=== PATIENT | female | born 2000 | race Caucasian/White ===

== ENCOUNTER 2019-10-30 10:26 | Inpatient (IN) | payer MEDICAID, OTHER ==
[~2019-10-30] VITALS: Ht 172.7 cm; Wt 80.0 kg
[2019-10-30] MEDS ORDERED: TOPI100T37 PO (10:38)
[2019-10-30] MEDS ORDERED: DOCU-275 PO (10:38)
[2019-10-30] MEDS ORDERED: NAPR250T4 PO (10:38)
[2019-10-30] MEDS ORDERED: TRAZ-257 PO (10:38)
[2019-10-30] MEDS ORDERED: OLAN5TAB2 PO (10:38)
[2019-10-30] MEDS ORDERED: OXCA300T57 PO (10:38)
[2019-10-30] MEDS ORDERED: POLY17PO47 PO (10:38)
[2019-10-30] MEDS ORDERED: ZOLP10TA8 PO (10:38)
[2019-10-30] MEDS ORDERED: DIPH25CA85 PO (10:38)
[2019-10-30] MEDS ORDERED: OLAN7.5T2 PO (10:38)
[2019-10-30] MEDS ORDERED: LEVO1TAB57 PO (10:38)
[2019-10-30 14:22] LABS: AMPHET/METH SCREEN,URINE NEGATIVE (NEGATIVE); APPEARANCE,URINE CLOUDY (CLEAR); BARBITURATE SCREEN, URINE NEGATIVE (NEGATIVE); BENZODIAZEPINES SCREEN,URINE NEGATIVE (NEGATIVE); BILIRUBIN,URINE NEGATIVE (NEGATIVE); CANNABINOID SCREEN,URINE NEGATIVE (NEGATIVE); COCAINE SCREEN,URINE NEGATIVE (NEGATIVE); GLUCOSE, URINE (UA) NEGATIVE (NEGATIVE); KETONES,URINE NEGATIVE (NEGATIVE); LEUKOCYTE ESTERASE ,URINE MODERATE (NEGATIVE); METHADONE SCREEN, URINE NEGATIVE (NEGATIVE); NITRATE,URINE NEGATIVE (NEGATIVE); OCCULT BLOOD,URINE NEGATIVE (NEGATIVE); OPIATE SCREEN,URINE NEGATIVE (NEGATIVE); PHENCYCLIDINE SCREEN,URINE NEGATIVE (NEGATIVE); PROTEIN,URINE NEGATIVE (NEGATIVE)
[2019-10-30 14:26] LABS: BASOPHILS % (AUTO) 0.6 % (0.0-2.0); EOSINOPHILS % (AUTO) 0 % (1.0-6.0); HEMATOCRIT 39.4 % (36-46); HEMOGLOBIN 13.4 g/dL (12.0-16.0); LYMPHOCYTES # (AUTO) 1.4 K/uL (1.0-4.8); LYMPHOCYTES % (AUTO) 21.9 % (22.0-44.0); MEAN CORPUSCULAR HEMOGLOBIN 30.7 pg (26.0-34.0); MEAN CORPUSCULAR HGB CONC 34.1 G/dL (31.0-37.0); MEAN CORPUSCULAR VOLUME 90 fL (80-100); MONOCYTES # (AUTO) 0.5 K/uL (0.1-1.0); MONOCYTES % (AUTO) 7.9 % (2.0-9.0); NEUTROPHILS # (AUTO) 4.4 K/uL (1.8-7.7); NEUTROPHILS % (AUTO) 69.6 % (40.0-70.0); PLATELET COUNT (AUTO) 178 K/uL (150-450); RED BLOOD CELL COUNT(AUTO) 4.38 MIL/uL (4.00-5.20); RED CELL DISTRIBUTION WIDTH 13.6 % (11.5-14.5)
[2019-10-30 14:28] LABS: BACTERIA,URINE None Seen /HPF (None Seen); RBC,URINE 0-2 /HPF (0-2)
[2019-10-30 14:29] LABS: SQUAMOUS EPITHELIAL CELL,UR Moderate /LPF (None Seen)
[2019-10-30] MEDS ORDERED: LORazepam 1 MG TABLET PO PRN (14:30)
[2019-10-30] MEDS ORDERED: ChlorproMAZINE HCL 100 MG TABLET PO PRN (14:30)
[2019-10-30 14:39] LABS: ANION GAP 12 mmol/L (8-16); CALCIUM, TOTAL 8.7 mg/dL (8.8-10.5); CARBON DIOXIDE 20 mmol/L (22-29); CHLORIDE 106 mmol/L (98-107); CREATININE 0.61 mg/dL (0.60-1.30); GLOMERULAR FILTR. RATE CALC > 60 mL/min (>60); GLUCOSE,RANDOM 87 mg/dL (70-110); POTASSIUM 3.6 mmol/L (3.5-5.1); SODIUM SERUM 138 mmol/L (136-145); UREA NITROGEN, BLOOD 10 mg/dL (7-18)
[2019-10-30 14:50] LABS: ALANINE AMINOTRANSFERASE 30 U/L (12-78); ALKALINE PHOSPHATASE 69 U/L (46-116); ASPARTATE AMINOTRANSFERASE 14 U/L (15-37); BILIRUBIN,TOTAL 0.3 mg/dL (0.1-1.0); HCG,QUANTITATIVE < 1 mIU/mL (0-6); TOTAL PROTEIN, SERUM 7.6 g/dL (6.4-8.2)
[2019-10-30] MEDS: OLANZapine 7.5 MG TABLET PO SCH (17:00)
[2019-10-30] MEDS: TOPIRAMATE 100 MG TABLET PO SCH (17:00)
[2019-10-30] MEDS: OXcarbazepine 300 MG TABLET PO SCH (17:00)
[2019-10-30] MEDS ORDERED: LOPERAMIDE HCL 2 MG CAPSULE PO PRN (18:15)
[2019-10-30] MEDS ORDERED: TUBERCULIN, PURIFIED PROTEIN DERIVATIVE 5 TU/0.1 ML SYRINGE ID ONE (18:15)
[2019-10-30] MEDS ORDERED: PROMETHAZINE HCL 25 MG TABLET PO PRN (18:15)
[2019-10-30] MEDS ORDERED: MAG HYDROX/AL HYDROX/SIMETH ES 30 ML SUSPENSION UDCUP PO PRN (18:15)
[2019-10-30] MEDS ORDERED: HydrOXYzine PAMOATE 50 MG CAPSULE PO PRN (18:15)
[2019-10-30] MEDS ORDERED: GuaiFENesin/D-METHORPHAN [SUGAR-FREE] 200-20MG/10 ML SYRUP UDCUP PO PRN (18:15)
[2019-10-30 18:30] VITALS: BP 120/79
[2019-10-30] MEDS ORDERED: HYDROCORTISONE 1% 30 GM OINTMENT TP PRN (20:15)
[2019-10-30] MEDS: DIVALPROEX SODIUM 500 MG ER TABLET PO SCH (20:35)
[2019-10-30] MEDS: TraZODone HCL 100 MG TABLET PO SCH (20:35)
[2019-10-31 02:12] VITALS: BP 117/73
[2019-10-31 08:04] VITALS: BP 118/74
[2019-10-31] MEDS: FOLIC ACID 1 MG TABLET PO SCH (08:34)
[2019-10-31] MEDS: OXcarbazepine 300 MG TABLET PO SCH ×2 (08:34→16:15)
[2019-10-31] MEDS: THIAMINE 100 MG TABLET PO SCH ×2 (08:34→16:15)
[2019-10-31] MEDS: MULTIVITAMINS WITH MINERALS, THERAPEUTIC TABLET PO SCH (08:34)
[2019-10-31] MEDS: TOPIRAMATE 100 MG TABLET PO SCH ×2 (08:34→16:15)
[2019-10-31] MEDS: OLANZapine 7.5 MG TABLET PO SCH ×2 (08:34→16:15)
[2019-10-31 16:04] VITALS: BP 116/69
[2019-10-31] MEDS: TraZODone HCL 100 MG TABLET PO SCH (20:35)
[2019-10-31] MEDS: DIVALPROEX SODIUM 500 MG ER TABLET PO SCH (20:35)
[2019-11-01 07:16] VITALS: BP 128/73
[2019-11-01] MEDS: OXcarbazepine 300 MG TABLET PO SCH ×2 (08:09→16:04)
[2019-11-01] MEDS: FOLIC ACID 1 MG TABLET PO SCH (08:09)
[2019-11-01] MEDS: TOPIRAMATE 100 MG TABLET PO SCH ×2 (08:09→16:04)
[2019-11-01] MEDS: MULTIVITAMINS WITH MINERALS, THERAPEUTIC TABLET PO SCH (08:09)
[2019-11-01] MEDS: OLANZapine 7.5 MG TABLET PO SCH ×2 (08:09→16:04)
[2019-11-01] MEDS: THIAMINE 100 MG TABLET PO SCH ×2 (08:09→16:04)
[2019-11-01 08:27] VITALS: BP 108/62
[2019-11-01 08:51] LABS: CHOL/HDL RATIO 4.4 (3.9-5.7); FREE T4 (FREE THYROXINE) 0.99 ng/dL (0.76-1.46); THYROID STIMULATING HORMONE 1.95 uIU/mL (0.36-3.74)
[2019-11-01 08:57] LABS: HEMOGLOBIN A1C 4.7 % (3.8-5.6)
[2019-11-01 16:50] VITALS: BP 113/64
[2019-11-01] MEDS: DIVALPROEX SODIUM 500 MG ER TABLET PO SCH (20:08)
[2019-11-01] MEDS: TraZODone HCL 100 MG TABLET PO SCH (20:08)
[2019-11-01] MEDS: ACETAMINOPHEN 325 MG TABLET PO PRN (20:56)
[2019-11-02 06:45] VITALS: BP 118/78
[2019-11-02 06:46] VITALS: BP 110/71
[2019-11-02 08:19] VITALS: BP 100/69
[2019-11-02] MEDS: THIAMINE 100 MG TABLET PO SCH ×2 (09:04→16:24)
[2019-11-02] MEDS: OLANZapine 7.5 MG TABLET PO SCH ×2 (09:04→16:24)
[2019-11-02] MEDS: OXcarbazepine 300 MG TABLET PO SCH ×2 (09:04→16:24)
[2019-11-02] MEDS: MULTIVITAMINS WITH MINERALS, THERAPEUTIC TABLET PO SCH (09:04)
[2019-11-02] MEDS: TOPIRAMATE 100 MG TABLET PO SCH ×2 (09:04→16:24)
[2019-11-02] MEDS: FOLIC ACID 1 MG TABLET PO SCH (09:04)
[2019-11-02 16:06] VITALS: BP 117/73
[2019-11-02] MEDS: DIVALPROEX SODIUM 500 MG ER TABLET PO SCH (20:02)
[2019-11-02] MEDS: TraZODone HCL 100 MG TABLET PO SCH (20:02)
[2019-11-03 02:54] VITALS: BP 109/68
[2019-11-03 08:21] VITALS: BP 116/83
[2019-11-03] MEDS: TOPIRAMATE 100 MG TABLET PO SCH ×2 (09:03→16:13)
[2019-11-03] MEDS: OXcarbazepine 300 MG TABLET PO SCH ×2 (09:03→16:12)
[2019-11-03] MEDS: THIAMINE 100 MG TABLET PO SCH ×2 (09:03→16:12)
[2019-11-03] MEDS: MULTIVITAMINS WITH MINERALS, THERAPEUTIC TABLET PO SCH (09:03)
[2019-11-03] MEDS: OLANZapine 7.5 MG TABLET PO SCH ×2 (09:04→16:13)
[2019-11-03] MEDS: FOLIC ACID 1 MG TABLET PO SCH (09:04)
[2019-11-03 16:06] VITALS: BP 118/69
[2019-11-03] MEDS: DIVALPROEX SODIUM 500 MG ER TABLET PO SCH (20:07)
[2019-11-03] MEDS: TraZODone HCL 100 MG TABLET PO SCH (20:07)
[2019-11-04 04:31] VITALS: BP 124/78
[2019-11-04 08:48] VITALS: BP 117/73
[2019-11-04] MEDS: TOPIRAMATE 100 MG TABLET PO SCH ×2 (09:09→16:45)
[2019-11-04] MEDS: THIAMINE 100 MG TABLET PO SCH ×2 (09:10→16:45)
[2019-11-04] MEDS: OLANZapine 7.5 MG TABLET PO SCH ×2 (09:10→16:46)
[2019-11-04] MEDS: FOLIC ACID 1 MG TABLET PO SCH (09:10)
[2019-11-04] MEDS: MULTIVITAMINS WITH MINERALS, THERAPEUTIC TABLET PO SCH (09:10)
[2019-11-04 16:38] VITALS: BP 115/67
[2019-11-04] MEDS: ACETAMINOPHEN 325 MG TABLET PO PRN (18:21)
[2019-11-04] MEDS: TraZODone HCL 100 MG TABLET PO SCH (19:48)
[2019-11-04] MEDS: DIVALPROEX SODIUM 500 MG ER TABLET PO SCH (19:48)
[2019-11-05 00:16] VITALS: BP 103/60
[2019-11-05] MEDS: FOLIC ACID 1 MG TABLET PO SCH (07:44)
[2019-11-05] MEDS: OLANZapine 7.5 MG TABLET PO SCH ×2 (07:45→17:04)
[2019-11-05] MEDS: TOPIRAMATE 100 MG TABLET PO SCH ×2 (07:45→17:04)
[2019-11-05] MEDS: THIAMINE 100 MG TABLET PO SCH ×2 (07:45→17:04)
[2019-11-05] MEDS: MULTIVITAMINS WITH MINERALS, THERAPEUTIC TABLET PO SCH (07:45)
[2019-11-05 08:27] VITALS: BP 111/77
[2019-11-05 16:09] VITALS: BP 119/72
[2019-11-05] MEDS: DIVALPROEX SODIUM 500 MG ER TABLET PO SCH (20:05)
[2019-11-05] MEDS: TraZODone HCL 100 MG TABLET PO SCH (20:06)
[2019-11-06 04:18] VITALS: BP 115/78
[2019-11-06 08:26] LABS: BASOPHILS % (AUTO) 0.5 % (0.0-2.0); EOSINOPHILS % (AUTO) 0.1 % (1.0-6.0); HEMATOCRIT 39.3 % (36-46); HEMOGLOBIN 13.4 g/dL (12.0-16.0); LYMPHOCYTES # (AUTO) 1.8 K/uL (1.0-4.8); LYMPHOCYTES % (AUTO) 36.6 % (22.0-44.0); MEAN CORPUSCULAR HEMOGLOBIN 31.5 pg (26.0-34.0); MEAN CORPUSCULAR HGB CONC 34.2 G/dL (31.0-37.0); MEAN CORPUSCULAR VOLUME 92 fL (80-100); MONOCYTES # (AUTO) 0.3 K/uL (0.1-1.0); MONOCYTES % (AUTO) 6.9 % (2.0-9.0); NEUTROPHILS # (AUTO) 2.8 K/uL (1.8-7.7); NEUTROPHILS % (AUTO) 55.9 % (40.0-70.0); PLATELET COUNT (AUTO) 165 K/uL (150-450); RED BLOOD CELL COUNT(AUTO) 4.26 MIL/uL (4.00-5.20)
[2019-11-06] MEDS: FOLIC ACID 1 MG TABLET PO SCH (08:31)
[2019-11-06] MEDS: OLANZapine 7.5 MG TABLET PO SCH ×2 (08:31→16:59)
[2019-11-06] MEDS: THIAMINE 100 MG TABLET PO SCH ×2 (08:31→16:59)
[2019-11-06] MEDS: TOPIRAMATE 100 MG TABLET PO SCH ×2 (08:31→16:59)
[2019-11-06] MEDS: MULTIVITAMINS WITH MINERALS, THERAPEUTIC TABLET PO SCH (08:31)
[2019-11-06 08:52] LABS: ALANINE AMINOTRANSFERASE 24 U/L (12-78); ALBUMIN 3.5 g/dL (3.4-5.0); ALKALINE PHOSPHATASE 70 U/L (46-116); ASPARTATE AMINOTRANSFERASE 13 U/L (15-37); BILIRUBIN,TOTAL 0.2 mg/dL (0.1-1.0); TOTAL PROTEIN, SERUM 6.9 g/dL (6.4-8.2); VALPROIC ACID 58 mcg/mL (50-100)
[2019-11-06 08:54] LABS: BILIRUBIN,DIRECT < 0.05 mg/dL (0.00-0.20)
[2019-11-06 09:02] VITALS: BP 110/66
[2019-11-06] MEDS ORDERED: TRAZ-257 PO (14:47)
[2019-11-06] MEDS ORDERED: OLAN7.5T9 PO (14:47)
[2019-11-06] MEDS ORDERED: TOPI100T37 PO (14:47)
[2019-11-06] MEDS ORDERED: DIVA-80 PO (14:47)
[2019-11-06 16:15] VITALS: BP 102/63
[2019-11-06] MEDS: TraZODone HCL 100 MG TABLET PO SCH (20:11)
[2019-11-06] MEDS: DIVALPROEX SODIUM 500 MG ER TABLET PO SCH (20:11)
[2019-11-07 00:23] VITALS: BP 104/64
[2019-11-07] MEDS: FOLIC ACID 1 MG TABLET PO SCH (08:25)
[2019-11-07] MEDS: OLANZapine 7.5 MG TABLET PO SCH ×2 (08:25→16:09)
[2019-11-07] MEDS: MULTIVITAMINS WITH MINERALS, THERAPEUTIC TABLET PO SCH (08:25)
[2019-11-07] MEDS: THIAMINE 100 MG TABLET PO SCH ×2 (08:25→16:09)
[2019-11-07] MEDS: TOPIRAMATE 100 MG TABLET PO SCH ×2 (08:25→16:09)
[2019-11-07 08:26] VITALS: BP 101/60
[2019-11-07 16:24] VITALS: BP 108/72
[2019-11-07] MEDS: DIVALPROEX SODIUM 500 MG ER TABLET PO SCH (20:27)
[2019-11-07] MEDS: TraZODone HCL 100 MG TABLET PO SCH (20:27)
[2019-11-08 03:00] VITALS: BP 106/66
[2019-11-08] MEDS: FOLIC ACID 1 MG TABLET PO SCH (08:24)
[2019-11-08] MEDS: OLANZapine 7.5 MG TABLET PO SCH ×2 (08:24→16:40)
[2019-11-08] MEDS: THIAMINE 100 MG TABLET PO SCH ×2 (08:24→16:40)
[2019-11-08] MEDS: MULTIVITAMINS WITH MINERALS, THERAPEUTIC TABLET PO SCH (08:24)
[2019-11-08] MEDS: TOPIRAMATE 100 MG TABLET PO SCH ×2 (08:25→16:40)
[2019-11-08 08:26] VITALS: BP 102/66
[2019-11-08 16:27] VITALS: BP 106/71
[2019-11-08] MEDS: DIVALPROEX SODIUM 500 MG ER TABLET PO SCH (20:25)
[2019-11-08] MEDS: TraZODone HCL 100 MG TABLET PO SCH (20:25)
[2019-11-09 05:54] VITALS: BP 100/61
[2019-11-09] MEDS: FOLIC ACID 1 MG TABLET PO SCH (08:26)
[2019-11-09] MEDS: MULTIVITAMINS WITH MINERALS, THERAPEUTIC TABLET PO SCH (08:26)
[2019-11-09] MEDS: TOPIRAMATE 100 MG TABLET PO SCH ×2 (08:26→16:23)
[2019-11-09] MEDS: OLANZapine 7.5 MG TABLET PO SCH ×2 (08:26→16:23)
[2019-11-09] MEDS: THIAMINE 100 MG TABLET PO SCH ×2 (08:26→16:23)
[2019-11-09 09:47] VITALS: BP 105/72
[2019-11-09 16:19] VITALS: BP 112/65
[2019-11-09] MEDS: DIVALPROEX SODIUM 500 MG ER TABLET PO SCH (20:21)
[2019-11-09] MEDS: TraZODone HCL 100 MG TABLET PO SCH (20:21)
[2019-11-09] MEDS: ZOLPIDEM TARTRATE 10 MG TABLET PO PRN (22:13)
[2019-11-10 00:05] VITALS: BP 105/60
[2019-11-10 08:10] VITALS: BP 113/71
[2019-11-10] MEDS: MULTIVITAMINS WITH MINERALS, THERAPEUTIC TABLET PO SCH (08:20)
[2019-11-10] MEDS: TOPIRAMATE 100 MG TABLET PO SCH ×2 (08:20→16:09)
[2019-11-10] MEDS: OLANZapine 7.5 MG TABLET PO SCH ×2 (08:20→16:09)
[2019-11-10 16:27] VITALS: BP 125/69
[2019-11-10] MEDS: DIVALPROEX SODIUM 500 MG ER TABLET PO SCH (20:02)
[2019-11-10] MEDS: TraZODone HCL 100 MG TABLET PO SCH (20:02)
[2019-11-11 01:55] VITALS: BP 128/70
[2019-11-11] MEDS: MULTIVITAMINS WITH MINERALS, THERAPEUTIC TABLET PO SCH (08:19)
[2019-11-11] MEDS: TOPIRAMATE 100 MG TABLET PO SCH ×2 (08:20→15:58)
[2019-11-11] MEDS: MAGNESIUM HYDROXIDE SUSPENSION 30 ML UDCUP PO PRN (08:20)
[2019-11-11] MEDS: OLANZapine 7.5 MG TABLET PO SCH ×2 (08:20→15:58)
[2019-11-11 08:31] VITALS: BP 109/68
[2019-11-11 16:12] VITALS: BP 107/65
[2019-11-11] MEDS: DIVALPROEX SODIUM 500 MG ER TABLET PO SCH (20:09)
[2019-11-11] MEDS: TraZODone HCL 100 MG TABLET PO SCH (20:09)
[2019-11-11] MEDS: ZOLPIDEM TARTRATE 10 MG TABLET PO PRN (20:46)
[2019-11-11] MEDS: ACETAMINOPHEN 325 MG TABLET PO PRN (21:17)
[2019-11-12 05:32] VITALS: BP 110/68
[2019-11-12] MEDS: OLANZapine 7.5 MG TABLET PO SCH ×2 (08:05→15:59)
[2019-11-12] MEDS: TOPIRAMATE 100 MG TABLET PO SCH ×2 (08:05→15:59)
[2019-11-12] MEDS: MULTIVITAMINS WITH MINERALS, THERAPEUTIC TABLET PO SCH (08:05)
[2019-11-12 08:18] VITALS: BP 103/71
[2019-11-12 16:08] VITALS: BP 105/60
[2019-11-12] MEDS: MAGNESIUM HYDROXIDE SUSPENSION 30 ML UDCUP PO PRN (20:02)
[2019-11-12] MEDS: DIVALPROEX SODIUM 500 MG ER TABLET PO SCH (20:04)
[2019-11-12] MEDS: TraZODone HCL 100 MG TABLET PO SCH (20:04)
[2019-11-13 01:20] VITALS: BP 105/60
[2019-11-13 08:06] VITALS: BP 118/68
[2019-11-13] MEDS: TOPIRAMATE 100 MG TABLET PO SCH (08:13)
[2019-11-13] MEDS: OLANZapine 7.5 MG TABLET PO SCH (08:13)
[2019-11-13] MEDS: MULTIVITAMINS WITH MINERALS, THERAPEUTIC TABLET PO SCH (08:13)
== END 2019-11-13 13:15 | disposition home or self-care (01) | DRG 885 ==
LOC: EMS 10:32 → B2S 14:19 → UNDOADMIN 15:37
PROVIDERS: ADMIT Psychiatry & Neurology Psychiatry; ATTEND Psychiatry & Neurology Psychiatry
DX: F25.0 Schizoaffective disorder, bipolar type (principal); F79 Unspecified intellectual disabilities; F17.200 Nicotine dependence, unspecified, uncomplicated; F41.9 Anxiety disorder, unspecified; F84.0 Autistic disorder; G40.909 Epilepsy, unspecified, not intractable, without status epilepticus; G47.00 Insomnia, unspecified; Z79.899 Other long term (current) drug therapy; Z91.19 Patient's noncompliance with other medical treatment and regimen; F90.9 Attention-deficit hyperactivity disorder, unspecified type; K59.00 Constipation, unspecified; Z20.828 Contact with and (suspected) exposure to other viral communicable diseases
CPT/HCPCS: 83036; 84439; 84443; 86592; 87086; G0480

== ENCOUNTER 2020-07-29 20:45 | Inpatient (IN) | payer MEDICAID, OTHER ==
[~2020-07-29] VITALS: Ht 172.7 cm; Wt 96.8 kg
[~2020-07-29 20:45] MED LIST: DIVA-80 PO; OLAN7.5T9 PO; TOPI100T37 PO; TRAZ-257 PO
[2020-07-29] MEDS ORDERED: LORazepam 2 MG TABLET PO PRN (23:00)
[2020-07-29] MEDS ORDERED: ZOLPIDEM TARTRATE 10 MG TABLET PO PRN (23:00)
[2020-07-29] MEDS ORDERED: HALOPERIDOL 5 MG TABLET PO PRN (23:00)
[2020-07-30 01:29] LABS: COVID AG,FIA SOURCE NASOPHARYNGEAL
[2020-07-30 01:32] LABS: BASOPHILS % (AUTO) 0.4 % (0.0-2.0); EOSINOPHILS % (AUTO) 0 % (1.0-6.0); HEMATOCRIT 38.5 % (36-46); HEMOGLOBIN 13.1 g/dL (12.0-16.0); LYMPHOCYTES # (AUTO) 2.4 K/uL (1.0-4.8); LYMPHOCYTES % (AUTO) 32.7 % (22.0-44.0); MEAN CORPUSCULAR HEMOGLOBIN 31.5 pg (26.0-34.0); MEAN CORPUSCULAR HGB CONC 34.2 G/dL (31.0-37.0); MEAN CORPUSCULAR VOLUME 92 fL (80-100); MONOCYTES # (AUTO) 0.6 K/uL (0.1-1.0); NEUTROPHILS # (AUTO) 4.3 K/uL (1.8-7.7); NEUTROPHILS % (AUTO) 58.9 % (40.0-70.0); PLATELET COUNT (AUTO) 175 K/uL (150-450); RED BLOOD CELL COUNT(AUTO) 4.17 MIL/uL (4.00-5.20); RED CELL DISTRIBUTION WIDTH 13.5 % (11.5-14.5)
[2020-07-30 01:40] LABS: ANION GAP 16 mmol/L (8-16); CALCIUM, TOTAL 8.9 mg/dL (8.8-10.5); CARBON DIOXIDE 19 mmol/L (22-29); CHLORIDE 106 mmol/L (98-107); CREATININE 0.59 mg/dL (0.60-1.30); GLOMERULAR FILTR. RATE CALC > 60 mL/min (>60); GLUCOSE,RANDOM 97 mg/dL (70-110); POTASSIUM 3.7 mmol/L (3.5-5.1); SODIUM SERUM 141 mmol/L (136-145); UREA NITROGEN, BLOOD 15 mg/dL (7-18)
[2020-07-30 01:40] LABS: AMPHET/METH SCREEN,URINE NEGATIVE (NEGATIVE); BARBITURATE SCREEN, URINE NEGATIVE (NEGATIVE); BENZODIAZEPINES SCREEN,URINE NEGATIVE (NEGATIVE); CANNABINOID SCREEN,URINE NEGATIVE (NEGATIVE); COCAINE SCREEN,URINE NEGATIVE (NEGATIVE); METHADONE SCREEN, URINE NEGATIVE (NEGATIVE); OPIATE SCREEN,URINE NEGATIVE (NEGATIVE)
[2020-07-30 01:46] LABS: PHENCYCLIDINE SCREEN,URINE NEGATIVE (NEGATIVE)
[2020-07-30 01:51] LABS: ALANINE AMINOTRANSFERASE 39 U/L (12-78); ALBUMIN 3.8 g/dL (3.4-5.0); ALKALINE PHOSPHATASE 76 U/L (46-116); ASPARTATE AMINOTRANSFERASE 19 U/L (15-37); BILIRUBIN,TOTAL 0.3 mg/dL (0.1-1.0); HCG,QUANTITATIVE < 1 mIU/mL (0-6); TOTAL PROTEIN, SERUM 7.4 g/dL (6.4-8.2); VALPROIC ACID 92 mcg/mL (50-100)
[2020-07-30 03:28] LABS: APPEARANCE,URINE CLOUDY (CLEAR); BILIRUBIN,URINE NEGATIVE (NEGATIVE); GLUCOSE, URINE (UA) NEGATIVE (NEGATIVE); KETONES,URINE TRACE mg/dL (NEGATIVE); LEUKOCYTE ESTERASE ,URINE NEGATIVE (NEGATIVE); NITRATE,URINE NEGATIVE (NEGATIVE); OCCULT BLOOD,URINE NEGATIVE (NEGATIVE); PROTEIN,URINE NEGATIVE (NEGATIVE)
[2020-07-30 03:32] LABS: CHOL/HDL RATIO 3.9 (3.9-5.7); CHOLESTEROL 187 mg/dL (131-200); HDL CHOLESTEROL 48 mg/dL (40-60); LDL CHOL (CALC.) 115 mg/dL (0-130); TRIGLYCERIDES 120 mg/dL (15-150)
[2020-07-30 05:41] VITALS: BP 122/80
[2020-07-30 08:05] VITALS: BP 115/85
[2020-07-30] MEDS ORDERED: GuaiFENesin/D-METHORPHAN [SUGAR-FREE] 200-20MG/10 ML SYRUP UDCUP PO PRN (12:00)
[2020-07-30] MEDS ORDERED: HydrOXYzine PAMOATE 50 MG CAPSULE PO PRN (12:00)
[2020-07-30] MEDS ORDERED: MAG HYDROX/AL HYDROX/SIMETH ES 30 ML SUSPENSION UDCUP PO PRN (12:00)
[2020-07-30] MEDS ORDERED: PROMETHAZINE HCL 25 MG TABLET PO PRN (12:00)
[2020-07-30] MEDS: THIAMINE 100 MG TABLET PO SCH (16:43)
[2020-07-30] MEDS: TOPIRAMATE 100 MG TABLET PO SCH (16:43)
[2020-07-30] MEDS: OXcarbazepine 300 MG TABLET PO SCH (16:59)
[2020-07-30 17:28] VITALS: BP 127/78
[2020-07-30] MEDS: OLANZapine 5 MG RAPDIS TABLET PO SCH (20:08)
[2020-07-30] MEDS: MELATONIN 5 MG TABLET PO SCH (20:08)
[2020-07-30] MEDS: TraZODone HCL 100 MG TABLET PO SCH (20:08)
[2020-07-30] MEDS: DIVALPROEX SODIUM 500 MG ER TABLET PO SCH (20:09)
[2020-07-31] VITALS (10 sets, daily range): BP systolic 119–125; BP diastolic 60–86
[2020-07-31] MEDS: MAGNESIUM HYDROXIDE SUSPENSION 30 ML UDCUP PO PRN (06:50)
[2020-07-31 08:26] LABS: FREE T4 (FREE THYROXINE) 0.87 ng/dL (0.76-1.46); THYROID STIMULATING HORMONE 2.99 uIU/mL (0.36-3.74)
[2020-07-31 08:35] LABS: HEMOGLOBIN A1C 4.4 % (3.8-5.6)
[2020-07-31] MEDS: OMEGA-3/DHA/EPA/FISH OIL 1,000 MG CAPSULE PO SCH (08:35)
[2020-07-31] MEDS: TOPIRAMATE 100 MG TABLET PO SCH ×2 (08:35→16:30)
[2020-07-31] MEDS: OXcarbazepine 300 MG TABLET PO SCH ×2 (08:35→16:30)
[2020-07-31] MEDS: MULTIVITAMINS WITH MINERALS, THERAPEUTIC TABLET PO SCH (08:35)
[2020-07-31] MEDS: FOLIC ACID 1 MG TABLET PO SCH (08:35)
[2020-07-31] MEDS: THIAMINE 100 MG TABLET PO SCH ×2 (08:35→16:30)
[2020-07-31] MEDS: ACETAMINOPHEN 325 MG TABLET PO PRN (19:43)
[2020-07-31] MEDS: OLANZapine 5 MG RAPDIS TABLET PO SCH (20:13)
[2020-07-31] MEDS: TraZODone HCL 100 MG TABLET PO SCH (20:13)
[2020-07-31] MEDS: DIVALPROEX SODIUM 500 MG ER TABLET PO SCH (20:13)
[2020-07-31] MEDS: MELATONIN 5 MG TABLET PO SCH (20:13)
[2020-08-01 00:51] VITALS: BP 120/68
[2020-08-01 02:01] VITALS: BP 120/68
[2020-08-01] MEDS: FOLIC ACID 1 MG TABLET PO SCH (08:02)
[2020-08-01] MEDS: THIAMINE 100 MG TABLET PO SCH ×2 (08:02→16:19)
[2020-08-01] MEDS: OMEGA-3/DHA/EPA/FISH OIL 1,000 MG CAPSULE PO SCH (08:02)
[2020-08-01] MEDS: TOPIRAMATE 100 MG TABLET PO SCH ×2 (08:02→16:19)
[2020-08-01] MEDS: MULTIVITAMINS WITH MINERALS, THERAPEUTIC TABLET PO SCH (08:03)
[2020-08-01] MEDS: ATOMOXETINE HCL 25 MG CAPSULE PO SCH (08:03)
[2020-08-01] MEDS: OXcarbazepine 300 MG TABLET PO SCH ×2 (08:03→16:19)
[2020-08-01 08:15] VITALS: BP 120/77
[2020-08-01 16:07] VITALS: BP 121/81
[2020-08-01] MEDS: MAGNESIUM HYDROXIDE SUSPENSION 30 ML UDCUP PO PRN (18:10)
[2020-08-01] MEDS: TraZODone HCL 100 MG TABLET PO SCH (20:02)
[2020-08-01] MEDS: MELATONIN 5 MG TABLET PO SCH (20:02)
[2020-08-01] MEDS: OLANZapine 5 MG RAPDIS TABLET PO SCH (20:03)
[2020-08-01] MEDS: DIVALPROEX SODIUM 500 MG ER TABLET PO SCH (20:03)
[2020-08-02 05:44] VITALS: BP 120/68
[2020-08-02 05:53] VITALS: BP 120/68
[2020-08-02] MEDS: MULTIVITAMINS WITH MINERALS, THERAPEUTIC TABLET PO SCH (08:09)
[2020-08-02] MEDS: OMEGA-3/DHA/EPA/FISH OIL 1,000 MG CAPSULE PO SCH (08:09)
[2020-08-02] MEDS: FOLIC ACID 1 MG TABLET PO SCH (08:09)
[2020-08-02] MEDS: TOPIRAMATE 100 MG TABLET PO SCH ×2 (08:10→16:03)
[2020-08-02] MEDS: THIAMINE 100 MG TABLET PO SCH ×2 (08:10→16:03)
[2020-08-02] MEDS: OXcarbazepine 300 MG TABLET PO SCH ×2 (08:10→16:04)
[2020-08-02] MEDS: LOPERAMIDE HCL 2 MG CAPSULE PO PRN ×2 (08:13→12:15)
[2020-08-02] MEDS: ATOMOXETINE HCL 25 MG CAPSULE PO SCH (08:15)
[2020-08-02 09:12] VITALS: BP_SYST 117; BP_DIAS 64; BP_DIAS 65
[2020-08-02] MEDS: ACETAMINOPHEN 325 MG TABLET PO PRN (16:02)
[2020-08-02 16:16] VITALS: BP 124/70
[2020-08-02] MEDS: DIVALPROEX SODIUM 500 MG ER TABLET PO SCH (19:57)
[2020-08-02] MEDS: MELATONIN 5 MG TABLET PO SCH (19:57)
[2020-08-02] MEDS: OLANZapine 5 MG RAPDIS TABLET PO SCH (19:57)
[2020-08-02] MEDS: TraZODone HCL 100 MG TABLET PO SCH (19:57)
[2020-08-03 01:26] VITALS: BP 109/65
[2020-08-03 01:31] VITALS: BP 109/65
[2020-08-03 05:18] VITALS: BP 108/54
[2020-08-03 07:18] LABS: COVID AG,FIA SOURCE NASOPHARYNGEAL
[2020-08-03 08:11] VITALS: BP 122/63
[2020-08-03] MEDS: FOLIC ACID 1 MG TABLET PO SCH (08:14)
[2020-08-03] MEDS: OMEGA-3/DHA/EPA/FISH OIL 1,000 MG CAPSULE PO SCH (08:14)
[2020-08-03] MEDS: THIAMINE 100 MG TABLET PO SCH ×2 (08:15→16:04)
[2020-08-03] MEDS: ATOMOXETINE HCL 25 MG CAPSULE PO SCH (08:15)
[2020-08-03] MEDS: MULTIVITAMINS WITH MINERALS, THERAPEUTIC TABLET PO SCH (08:15)
[2020-08-03] MEDS: TOPIRAMATE 100 MG TABLET PO SCH ×2 (08:15→16:04)
[2020-08-03] MEDS: OXcarbazepine 300 MG TABLET PO SCH ×2 (08:15→16:04)
[2020-08-03 16:04] VITALS: BP 129/85
[2020-08-03 17:19] VITALS: BP 118/67
[2020-08-03] MEDS: LOPERAMIDE HCL 2 MG CAPSULE PO PRN (17:54)
[2020-08-03] MEDS: ACETAMINOPHEN 325 MG TABLET PO PRN (18:44)
[2020-08-03] MEDS: MELATONIN 5 MG TABLET PO SCH (20:00)
[2020-08-03] MEDS: TraZODone HCL 100 MG TABLET PO SCH (20:00)
[2020-08-03] MEDS: DIVALPROEX SODIUM 500 MG ER TABLET PO SCH (20:00)
[2020-08-03] MEDS: OLANZapine 10 MG RAPDIS TABLET PO SCH (20:02)
[2020-08-04 05:34] VITALS: BP 124/65
[2020-08-04 08:04] VITALS: BP 125/55
[2020-08-04] MEDS: THIAMINE 100 MG TABLET PO SCH ×2 (08:04→15:48)
[2020-08-04] MEDS: OXcarbazepine 300 MG TABLET PO SCH ×2 (08:04→15:48)
[2020-08-04] MEDS: MULTIVITAMINS WITH MINERALS, THERAPEUTIC TABLET PO SCH (08:04)
[2020-08-04] MEDS: FOLIC ACID 1 MG TABLET PO SCH (08:04)
[2020-08-04] MEDS: TOPIRAMATE 100 MG TABLET PO SCH ×2 (08:05→15:49)
[2020-08-04] MEDS: OMEGA-3/DHA/EPA/FISH OIL 1,000 MG CAPSULE PO SCH (08:05)
[2020-08-04] MEDS ORDERED: ATOMOXETINE HCL 40 MG CAPSULE PO SCH (09:00)
[2020-08-04] MEDS: ACETAMINOPHEN 325 MG TABLET PO PRN ×2 (09:10→15:49)
[2020-08-04 16:03] VITALS: BP 135/87
[2020-08-04] MEDS: DIVALPROEX SODIUM 500 MG ER TABLET PO SCH (19:59)
[2020-08-04] MEDS: TraZODone HCL 150 MG TABLET PO SCH (19:59)
[2020-08-04] MEDS: MELATONIN 5 MG TABLET PO SCH (19:59)
[2020-08-04] MEDS: OLANZapine 10 MG RAPDIS TABLET PO SCH (19:59)
[2020-08-05 04:10] VITALS: BP 118/68
[2020-08-05 08:09] VITALS: BP 108/73
[2020-08-05] MEDS: OMEGA-3/DHA/EPA/FISH OIL 1,000 MG CAPSULE PO SCH (08:41)
[2020-08-05] MEDS: MULTIVITAMINS WITH MINERALS, THERAPEUTIC TABLET PO SCH (08:41)
[2020-08-05] MEDS: TOPIRAMATE 100 MG TABLET PO SCH ×2 (08:41→16:01)
[2020-08-05] MEDS: THIAMINE 100 MG TABLET PO SCH ×2 (08:41→16:00)
[2020-08-05] MEDS: OXcarbazepine 300 MG TABLET PO SCH ×3 (08:41→16:00)
[2020-08-05] MEDS: FOLIC ACID 1 MG TABLET PO SCH (08:41)
[2020-08-05] MEDS ORDERED: ATOMOXETINE HCL 60 MG CAPSULE PO SCH (09:00)
[2020-08-05] MEDS ORDERED: TOPI100T37 PO (15:46)
[2020-08-05] MEDS ORDERED: TRAZ150 PO (15:46)
[2020-08-05] MEDS ORDERED: OMEG-135 PO (15:46)
[2020-08-05] MEDS ORDERED: OLAN10TA22 PO (15:46)
[2020-08-05] MEDS ORDERED: OXCA300T57 PO (15:46)
[2020-08-05] MEDS ORDERED: ATOM60CA7 PO (15:46)
[2020-08-05] MEDS ORDERED: MELA5TAB3 PO (15:46)
[2020-08-05] MEDS ORDERED: DIVA-80 PO (15:46)
[2020-08-05 16:03] VITALS: BP 124/77
[2020-08-05] MEDS: ACETAMINOPHEN 325 MG TABLET PO PRN (17:18)
[2020-08-05] MEDS: MELATONIN 5 MG TABLET PO SCH (20:05)
[2020-08-05] MEDS: DIVALPROEX SODIUM 500 MG ER TABLET PO SCH (20:05)
[2020-08-05] MEDS: TraZODone HCL 150 MG TABLET PO SCH (20:05)
[2020-08-05] MEDS: OLANZapine 10 MG RAPDIS TABLET PO SCH (20:05)
[2020-08-06 00:01] VITALS: BP 113/60
[2020-08-06 08:22] VITALS: BP 122/74
[2020-08-06] MEDS: MULTIVITAMINS WITH MINERALS, THERAPEUTIC TABLET PO SCH (08:47)
[2020-08-06] MEDS: FOLIC ACID 1 MG TABLET PO SCH (08:47)
[2020-08-06] MEDS: THIAMINE 100 MG TABLET PO SCH (08:47)
[2020-08-06] MEDS: OMEGA-3/DHA/EPA/FISH OIL 1,000 MG CAPSULE PO SCH (08:47)
[2020-08-06] MEDS: TOPIRAMATE 100 MG TABLET PO SCH (08:48)
[2020-08-06] MEDS: OXcarbazepine 300 MG TABLET PO SCH ×2 (08:49→12:44)
[2020-08-06] MEDS ORDERED: ATOMOXETINE HCL 40 MG CAPSULE PO SCH (09:00)
== END 2020-08-06 13:59 | disposition home or self-care (01) | DRG 750 ==
LOC: EMS 20:45 → B2S 23:00
PROVIDERS: ADMIT Psychiatry & Neurology Psychiatry; ATTEND Psychiatry & Neurology Psychiatry
DX: F25.1 Schizoaffective disorder, depressive type (principal); R45.851 Suicidal ideations; F70 Mild intellectual disabilities; G40.909 Epilepsy, unspecified, not intractable, without status epilepticus; Z20.822 Contact with and (suspected) exposure to COVID-19; F90.9 Attention-deficit hyperactivity disorder, unspecified type; F41.9 Anxiety disorder, unspecified; Z55.9 Problems related to education and literacy, unspecified; Z59.9 Problem related to housing and economic circumstances, unspecified; Z65.3 Problems related to other legal circumstances
CPT/HCPCS: 73503; 73552; 80053; 80061; 80164; 81003; 83036; 84439; 84443; 84702; 85025; 87426; 99285; A9575; G0480

== ENCOUNTER 2020-08-22 18:26 | Inpatient (IN) | payer MEDICAID, OTHER ==
[~2020-08-22] VITALS: Ht 175.3 cm; Wt 94.3 kg
[~2020-08-22 18:26] MED LIST changes: +ATOM60CA7 PO; +MELA5TAB3 PO; +OLAN10TA22 PO; -OLAN7.5T9 PO; +OMEG-135 PO; +OXCA300T57 PO; -TRAZ-257 PO; +TRAZ150 PO
[2020-08-22 19:29] LABS: BASOPHILS % (AUTO) 0.7 % (0.0-2.0); EOSINOPHILS % (AUTO) 0 % (1.0-6.0); HEMOGLOBIN 12.2 g/dL (12.0-16.0); LYMPHOCYTES # (AUTO) 1.5 K/uL (1.0-4.8); LYMPHOCYTES % (AUTO) 27.4 % (22.0-44.0); MEAN CORPUSCULAR HEMOGLOBIN 31.4 pg (26.0-34.0); MEAN CORPUSCULAR HGB CONC 33.9 G/dL (31.0-37.0); MEAN CORPUSCULAR VOLUME 93 fL (80-100); MONOCYTES # (AUTO) 0.6 K/uL (0.1-1.0); MONOCYTES % (AUTO) 10.9 % (2.0-9.0); NEUTROPHILS # (AUTO) 3.3 K/uL (1.8-7.7); PLATELET COUNT (AUTO) 161 K/uL (150-450); RED BLOOD CELL COUNT(AUTO) 3.89 MIL/uL (4.00-5.20); RED CELL DISTRIBUTION WIDTH 13.8 % (11.5-14.5)
[2020-08-22] MEDS ORDERED: ZOLPIDEM TARTRATE 10 MG TABLET PO PRN (19:45)
[2020-08-22 19:51] LABS: CALCIUM, TOTAL 8.2 mg/dL (8.8-10.5); CARBON DIOXIDE 19 mmol/L (22-29); CHLORIDE 105 mmol/L (98-107); CREATININE 0.68 mg/dL (0.60-1.30); GLOMERULAR FILTR. RATE CALC > 60 mL/min (>60); GLUCOSE,RANDOM 112 mg/dL (70-110); UREA NITROGEN, BLOOD 11 mg/dL (7-18)
[2020-08-22 20:02] LABS: ALANINE AMINOTRANSFERASE 26 U/L (12-78); ALBUMIN 3.6 g/dL (3.4-5.0); ALKALINE PHOSPHATASE 76 U/L (46-116); ANION GAP 15 mmol/L (8-16); ASPARTATE AMINOTRANSFERASE 15 U/L (15-37); BILIRUBIN,TOTAL 0.3 mg/dL (0.1-1.0); HCG,QUANTITATIVE < 1 mIU/mL (0-6); POTASSIUM 3.3 mmol/L (3.5-5.1); SODIUM SERUM 139 mmol/L (136-145); TOTAL PROTEIN, SERUM 6.8 g/dL (6.4-8.2)
[2020-08-22 20:39] LABS: AMPHET/METH SCREEN,URINE NEGATIVE (NEGATIVE); BARBITURATE SCREEN, URINE NEGATIVE (NEGATIVE); BENZODIAZEPINES SCREEN,URINE NEGATIVE (NEGATIVE); CANNABINOID SCREEN,URINE NEGATIVE (NEGATIVE); COCAINE SCREEN,URINE NEGATIVE (NEGATIVE); METHADONE SCREEN, URINE NEGATIVE (NEGATIVE); OPIATE SCREEN,URINE NEGATIVE (NEGATIVE)
[2020-08-22 20:41] LABS: PHENCYCLIDINE SCREEN,URINE NEGATIVE (NEGATIVE)
[2020-08-22 20:44] LABS: COVID AG,FIA SOURCE NASOPHARYNGEAL
[2020-08-22] MEDS ORDERED: POTASSIUM CHLORIDE 20 MEQ ER TABLET PO ONE (20:45)
[2020-08-22] MEDS ORDERED: LORazepam 1 MG TABLET PO ONE (23:30)
[2020-08-23 08:00] VITALS: BP 128/84
[2020-08-23] MEDS: LORazepam 2 MG TABLET PO PRN ×2 (11:21→19:59)
[2020-08-23] MEDS: OLANZapine 5 MG RAPDIS TABLET PO PRN (17:03)
[2020-08-23 17:14] VITALS: BP 133/87
[2020-08-24 08:00] VITALS: BP 132/73
[2020-08-24] MEDS: OLANZapine 5 MG RAPDIS TABLET PO PRN (08:22)
[2020-08-24] MEDS: LORazepam 2 MG TABLET PO PRN (08:22)
[2020-08-24] MEDS: TOPIRAMATE 100 MG TABLET PO SCH (16:02)
[2020-08-24 16:30] VITALS: BP 135/71
[2020-08-24] MEDS: TraZODone HCL 150 MG TABLET PO SCH (20:18)
[2020-08-24] MEDS: DIVALPROEX SODIUM 500 MG ER TABLET PO SCH (20:18)
[2020-08-24] MEDS: MELATONIN 5 MG TABLET PO SCH (20:19)
[2020-08-24] MEDS: OLANZapine 10 MG TABLET PO SCH (20:19)
[2020-08-24 20:30] VITALS: BP 133/83
[2020-08-24] MEDS ORDERED: ACETAMINOPHEN 325 MG TABLET PO PRN (20:45)
[2020-08-24] MEDS ORDERED: ATOM40CA9 PO (20:45)
[2020-08-24] MEDS ORDERED: IBUPROFEN 600 MG TABLET PO PRN (20:45)
[2020-08-25] MEDS: TOPIRAMATE 100 MG TABLET PO SCH ×2 (08:13→15:58)
[2020-08-25 08:14] VITALS: BP 116/69
[2020-08-25] MEDS ORDERED: FLUCONAZOLE 200 MG TABLET PO ONE (11:00)
[2020-08-25] MEDS ORDERED: POTASSIUM CHLORIDE 20 MEQ ER TABLET PO ONE ×2 (12:30→17:00)
[2020-08-25] MEDS: OLANZapine 5 MG RAPDIS TABLET PO PRN (15:58)
[2020-08-25 16:27] VITALS: BP 119/66
[2020-08-25] MEDS: LORazepam 2 MG TABLET PO PRN (17:49)
[2020-08-25] MEDS: MELATONIN 5 MG TABLET PO SCH (20:12)
[2020-08-25] MEDS: DIVALPROEX SODIUM 500 MG ER TABLET PO SCH (20:12)
[2020-08-25] MEDS: TraZODone HCL 150 MG TABLET PO SCH (20:12)
[2020-08-25] MEDS: OLANZapine 10 MG TABLET PO SCH (20:12)
[2020-08-26 08:00] VITALS: BP 130/83
[2020-08-26] MEDS: OLANZapine 5 MG RAPDIS TABLET PO PRN ×2 (08:23→15:33)
[2020-08-26] MEDS: TOPIRAMATE 100 MG TABLET PO SCH ×2 (08:23→16:12)
[2020-08-26 09:11] LABS: APPEARANCE,URINE CLOUDY (CLEAR); BILIRUBIN,URINE NEGATIVE (NEGATIVE); GLUCOSE, URINE (UA) NEGATIVE (NEGATIVE); KETONES,URINE NEGATIVE (NEGATIVE); LEUKOCYTE ESTERASE ,URINE NEGATIVE (NEGATIVE); NITRATE,URINE NEGATIVE (NEGATIVE); OCCULT BLOOD,URINE NEGATIVE (NEGATIVE); PH,URINE 8.5 (5.0-8.0); PROTEIN,URINE NEGATIVE (NEGATIVE)
[2020-08-26] MEDS: LORazepam 2 MG TABLET PO PRN (16:16)
[2020-08-26 16:33] VITALS: BP 110/65
[2020-08-26] MEDS: TraZODone HCL 150 MG TABLET PO SCH (20:03)
[2020-08-26] MEDS: OLANZapine 10 MG TABLET PO SCH (20:04)
[2020-08-26] MEDS: DIVALPROEX SODIUM 500 MG ER TABLET PO SCH (20:04)
[2020-08-26] MEDS: MELATONIN 5 MG TABLET PO SCH (20:04)
[2020-08-27] MEDS: TOPIRAMATE 100 MG TABLET PO SCH ×2 (09:04→17:07)
[2020-08-27] MEDS: OLANZapine 5 MG RAPDIS TABLET PO PRN ×3 (09:05→17:50)
[2020-08-27] MEDS: LORazepam 2 MG TABLET PO PRN ×2 (09:05→13:24)
[2020-08-27 09:27] VITALS: BP 101/62
[2020-08-27] MEDS ORDERED: ChlorproMAZINE HCL 50 MG/2 ML AMP ONE (13:54)
[2020-08-27] MEDS ORDERED: LORazepam 2 MG/ML VIAL ONE (13:54)
[2020-08-27] MEDS ORDERED: ChlorproMAZINE HCL 50 MG/2 ML AMP IM ONE (14:00)
[2020-08-27] MEDS ORDERED: DiphenhydrAMINE HCL 50 MG/ML VIAL IM ONE (14:00)
[2020-08-27] MEDS ORDERED: LORazepam 2 MG/ML VIAL IM ONE (14:00)
[2020-08-27] MEDS: OLANZapine 10 MG TABLET PO SCH (20:42)
[2020-08-27] MEDS: TraZODone HCL 150 MG TABLET PO SCH (20:42)
[2020-08-27] MEDS: MELATONIN 5 MG TABLET PO SCH (20:42)
[2020-08-27] MEDS: DIVALPROEX SODIUM 500 MG ER TABLET PO SCH (20:42)
[2020-08-27 21:15] VITALS: BP 129/65
[2020-08-28] MEDS ORDERED: DIVALPROEX SODIUM 500 MG ER TABLET PO SCH (09:00)
[2020-08-28] MEDS: TOPIRAMATE 100 MG TABLET PO SCH ×2 (10:56→16:03)
[2020-08-28] MEDS ORDERED: OLAN10TA74 PO (13:12)
[2020-08-28] MEDS ORDERED: MELA5TAB3 PO (13:12)
[2020-08-28] MEDS ORDERED: TOPI100T37 PO (13:12)
[2020-08-28] MEDS ORDERED: OMEG-135 PO (13:12)
[2020-08-28] MEDS ORDERED: DIVA-80 PO ×2 (13:12)
[2020-08-28] MEDS ORDERED: TRAZ150 PO (13:12)
[2020-08-28 16:04] VITALS: BP 109/69
== END 2020-08-28 17:15 | disposition home or self-care (01) | DRG 750 ==
LOC: EMS 18:28 → B3A 19:35 → 3EC 08-23 15:06
PROVIDERS: ADMIT Psychiatry & Neurology Psychiatry; ATTEND Psychiatry & Neurology Psychiatry
DX: F20.0 Paranoid schizophrenia (principal); R56.9 Unspecified convulsions; R45.851 Suicidal ideations; F41.9 Anxiety disorder, unspecified; F84.0 Autistic disorder; E66.3 Overweight; Z68.30 Body mass index [BMI] 30.0-30.9, adult; Z88.8 Allergy status to other drugs, medicaments and biological substances; Z79.899 Other long term (current) drug therapy; N76.0 Acute vaginitis; F90.9 Attention-deficit hyperactivity disorder, unspecified type; F31.9 Bipolar disorder, unspecified; F39 Unspecified mood [affective] disorder; Z20.822 Contact with and (suspected) exposure to COVID-19
CPT/HCPCS: 80053; 81003; 84702; 85025; 99285; A9575; G0480; J1200; J2060; J3230

== ENCOUNTER 2020-09-28 22:17 | Inpatient (IN) | payer MEDICAID, OTHER ==
[~2020-09-28] VITALS: Ht 175.3 cm; Wt 94.9 kg
[~2020-09-28 22:17] MED LIST changes: -ATOM60CA7 PO; -OLAN10TA22 PO; +OLAN10TA74 PO; -OXCA300T57 PO
[2020-09-28] MEDS ORDERED: NORE1TAB34 PO (22:29)
[2020-09-28 22:46] LABS: BASOPHILS % (AUTO) 0.4 % (0.0-2.0); EOSINOPHILS % (AUTO) 0 % (1.0-6.0); HEMATOCRIT 38.2 % (36-46); HEMOGLOBIN 12.8 g/dL (12.0-16.0); LYMPHOCYTES # (AUTO) 2.3 K/uL (1.0-4.8); LYMPHOCYTES % (AUTO) 34.1 % (22.0-44.0); MEAN CORPUSCULAR HEMOGLOBIN 31.1 pg (26.0-34.0); MEAN CORPUSCULAR HGB CONC 33.5 G/dL (31.0-37.0); MEAN CORPUSCULAR VOLUME 93 fL (80-100); MONOCYTES # (AUTO) 0.7 K/uL (0.1-1.0); NEUTROPHILS # (AUTO) 3.7 K/uL (1.8-7.7); NEUTROPHILS % (AUTO) 55.5 % (40.0-70.0); PLATELET COUNT (AUTO) 151 K/uL (150-450); RED BLOOD CELL COUNT(AUTO) 4.11 MIL/uL (4.00-5.20); RED CELL DISTRIBUTION WIDTH 13.6 % (11.5-14.5)
[2020-09-28 22:54] LABS: COVID AG,FIA SOURCE NASOPHARYNGEAL
[2020-09-28 23:01] LABS: ANION GAP 12 mmol/L (8-16); CALCIUM, TOTAL 8.4 mg/dL (8.8-10.5); CARBON DIOXIDE 19 mmol/L (22-29); CHLORIDE 110 mmol/L (98-107); CREATININE 0.65 mg/dL (0.60-1.30); GLOMERULAR FILTR. RATE CALC > 60 mL/min (>60); GLUCOSE,RANDOM 125 mg/dL (70-110); POTASSIUM 3.3 mmol/L (3.5-5.1); SODIUM SERUM 141 mmol/L (136-145); UREA NITROGEN, BLOOD 10 mg/dL (7-18)
[2020-09-28 23:09] LABS: AMPHET/METH SCREEN,URINE NEGATIVE (NEGATIVE); BARBITURATE SCREEN, URINE NEGATIVE (NEGATIVE); BENZODIAZEPINES SCREEN,URINE NEGATIVE (NEGATIVE); CANNABINOID SCREEN,URINE NEGATIVE (NEGATIVE); COCAINE SCREEN,URINE NEGATIVE (NEGATIVE); METHADONE SCREEN, URINE NEGATIVE (NEGATIVE); OPIATE SCREEN,URINE NEGATIVE (NEGATIVE)
[2020-09-28 23:10] LABS: PHENCYCLIDINE SCREEN,URINE NEGATIVE (NEGATIVE)
[2020-09-28 23:12] LABS: ALANINE AMINOTRANSFERASE 55 U/L (12-78); ALBUMIN 3.4 g/dL (3.4-5.0); ALKALINE PHOSPHATASE 75 U/L (46-116); ASPARTATE AMINOTRANSFERASE 26 U/L (15-37); BILIRUBIN,TOTAL 0.3 mg/dL (0.1-1.0); HCG,QUANTITATIVE < 1 mIU/mL (0-6); TOTAL PROTEIN, SERUM 7.1 g/dL (6.4-8.2); VALPROIC ACID 60 mcg/mL (50-100)
[2020-09-28] MEDS ORDERED: POTASSIUM CHLORIDE 10% 40 MEQ/30 ML LIQUID UDCUP PO ONE (23:45)
[2020-09-29] MEDS ORDERED: ZOLPIDEM TARTRATE 10 MG TABLET PO PRN (00:15)
[2020-09-29] MEDS ORDERED: OLANZapine 5 MG RAPDIS TABLET PO PRN (00:15)
[2020-09-29] MEDS: LORazepam 2 MG TABLET PO PRN ×2 (08:16→18:27)
[2020-09-29 20:17] VITALS: BP 130/76
[2020-09-29] MEDS ORDERED: ACETAMINOPHEN 325 MG TABLET PO PRN (21:00)
[2020-09-29] MEDS ORDERED: GuaiFENesin/D-METHORPHAN [SUGAR-FREE] 200-20MG/10 ML SYRUP UDCUP PO PRN (21:00)
[2020-09-29] MEDS ORDERED: MAG HYDROX/AL HYDROX/SIMETH ES 30 ML SUSPENSION UDCUP PO PRN (21:00)
[2020-09-29] MEDS ORDERED: LOPERAMIDE HCL 2 MG CAPSULE PO PRN (21:00)
[2020-09-29] MEDS ORDERED: MAGNESIUM HYDROXIDE SUSPENSION 30 ML UDCUP PO PRN (21:00)
[2020-09-29] MEDS ORDERED: HydrOXYzine PAMOATE 50 MG CAPSULE PO PRN (21:00)
[2020-09-29] MEDS ORDERED: PROMETHAZINE HCL 25 MG TABLET PO PRN (21:00)
[2020-09-29] MEDS ORDERED: OLANZapine 10 MG RAPDIS TABLET PO ONE (21:00)
[2020-09-29] MEDS ORDERED: TraZODone HCL 150 MG TABLET PO SCH (21:00)
[2020-09-29] MEDS: MELATONIN 5 MG TABLET PO SCH (22:22)
[2020-09-30 05:27] VITALS: BP 126/72
[2020-09-30 08:20] VITALS: BP 119/70
[2020-09-30] MEDS: DIVALPROEX SODIUM 500 MG ER TABLET PO SCH ×3 (08:47→16:15)
[2020-09-30] MEDS: OMEGA-3/DHA/EPA/FISH OIL 1,000 MG CAPSULE PO SCH (08:48)
[2020-09-30] MEDS: MULTIVITAMINS WITH MINERALS, THERAPEUTIC TABLET PO SCH (08:48)
[2020-09-30] MEDS: FOLIC ACID 1 MG TABLET PO SCH (08:48)
[2020-09-30] MEDS: TOPIRAMATE 100 MG TABLET PO SCH ×2 (08:52→16:15)
[2020-09-30] MEDS: THIAMINE 100 MG TABLET PO SCH ×2 (08:53→16:15)
[2020-09-30] MEDS: ZONISAMIDE 100 MG CAPSULE PO SCH ×2 (08:53→16:15)
[2020-09-30] MEDS: OLANZapine 10 MG RAPDIS TABLET PO SCH (08:53)
[2020-09-30] MEDS: LORazepam 2 MG TABLET PO PRN (12:34)
[2020-09-30 16:23] VITALS: BP 114/57
[2020-09-30] MEDS: MELATONIN 5 MG TABLET PO SCH (20:25)
[2020-09-30] MEDS: TraZODone HCL 100 MG TABLET PO SCH (20:25)
[2020-10-01 01:53] VITALS: BP 128/54
[2020-10-01] MEDS: TOPIRAMATE 100 MG TABLET PO SCH ×2 (08:41→16:19)
[2020-10-01] MEDS: ZONISAMIDE 100 MG CAPSULE PO SCH ×2 (08:41→16:19)
[2020-10-01] MEDS: FOLIC ACID 1 MG TABLET PO SCH (08:41)
[2020-10-01] MEDS: DIVALPROEX SODIUM 500 MG ER TABLET PO SCH ×3 (08:41→16:18)
[2020-10-01] MEDS: OMEGA-3/DHA/EPA/FISH OIL 1,000 MG CAPSULE PO SCH (08:41)
[2020-10-01] MEDS: OLANZapine 10 MG RAPDIS TABLET PO SCH (08:41)
[2020-10-01] MEDS: MULTIVITAMINS WITH MINERALS, THERAPEUTIC TABLET PO SCH (08:41)
[2020-10-01] MEDS: THIAMINE 100 MG TABLET PO SCH ×2 (08:42→16:19)
[2020-10-01 08:43] VITALS: BP 121/72
[2020-10-01] MEDS: LORazepam 2 MG TABLET PO PRN (08:44)
[2020-10-01] MEDS ORDERED: POTASSIUM CHLORIDE 20 MEQ ER TABLET PO ONE ×2 (12:45→17:00)
[2020-10-01] MEDS ORDERED: OLAN10TA26 PO (13:43)
[2020-10-01] MEDS ORDERED: TOPI100T37 PO (13:43)
[2020-10-01] MEDS ORDERED: DIVA-80 PO (13:43)
[2020-10-01] MEDS ORDERED: TRAZ-257 PO (13:43)
[2020-10-01] MEDS ORDERED: MELA5TAB3 PO (13:43)
[2020-10-01] MEDS ORDERED: ZONI100C31 PO (13:43)
[2020-10-01] MEDS ORDERED: OMEG-135 PO (13:43)
[2020-10-01 16:12] VITALS: BP 123/72
[2020-10-01] MEDS: MELATONIN 5 MG TABLET PO SCH (20:12)
[2020-10-01] MEDS: TraZODone HCL 100 MG TABLET PO SCH (20:12)
[2020-10-02 00:10] VITALS: BP 118/70
[2020-10-02 07:41] LABS: CHOL/HDL RATIO 4.1 (3.9-5.7); POTASSIUM 4.1 mmol/L (3.5-5.1)
[2020-10-02] MEDS: TOPIRAMATE 100 MG TABLET PO SCH (08:07)
[2020-10-02] MEDS: MULTIVITAMINS WITH MINERALS, THERAPEUTIC TABLET PO SCH (08:07)
[2020-10-02] MEDS: FOLIC ACID 1 MG TABLET PO SCH (08:07)
[2020-10-02] MEDS: THIAMINE 100 MG TABLET PO SCH (08:07)
[2020-10-02] MEDS: DIVALPROEX SODIUM 500 MG ER TABLET PO SCH ×2 (08:07→11:56)
[2020-10-02] MEDS: OMEGA-3/DHA/EPA/FISH OIL 1,000 MG CAPSULE PO SCH (08:07)
[2020-10-02] MEDS: ZONISAMIDE 100 MG CAPSULE PO SCH (08:08)
[2020-10-02] MEDS: LORazepam 2 MG TABLET PO PRN (08:08)
[2020-10-02] MEDS: OLANZapine 10 MG RAPDIS TABLET PO SCH (08:16)
[2020-10-02 08:24] VITALS: BP 130/69
== END 2020-10-02 16:10 | disposition home or self-care (01) | DRG 750 ==
LOC: EMS 22:17 → B3A 09-29 16:59
PROVIDERS: ADMIT Psychiatry & Neurology Psychiatry; ATTEND Psychiatry & Neurology Psychiatry
DX: F25.1 Schizoaffective disorder, depressive type (principal); R45.851 Suicidal ideations; E66.9 Obesity, unspecified; F41.9 Anxiety disorder, unspecified; G47.00 Insomnia, unspecified; F84.0 Autistic disorder; F31.9 Bipolar disorder, unspecified; F90.9 Attention-deficit hyperactivity disorder, unspecified type; E87.6 Hypokalemia; Z68.30 Body mass index [BMI] 30.0-30.9, adult; Z88.8 Allergy status to other drugs, medicaments and biological substances; Z20.822 Contact with and (suspected) exposure to COVID-19
CPT/HCPCS: 80053; 80061; 80164; 84132; 84702; 85025; 87081; 99285; A9575; G0480

== ENCOUNTER 2020-11-01 08:22 | Inpatient (IN) | payer MEDICAID, OTHER ==
[~2020-11-01] VITALS: Ht 165.1 cm; Wt 77.3 kg
[~2020-11-01 08:22] MED LIST changes: +OLAN10TA26 PO; -OLAN10TA74 PO; +TRAZ-257 PO; -TRAZ150 PO; +ZONI100C31 PO
[2020-11-01 09:39] LABS: COVID AG,FIA SOURCE NASOPHARYNGEAL
[2020-11-01 10:04] LABS: BASOPHILS % (AUTO) 0.6 % (0.0-2.0); EOSINOPHILS % (AUTO) 0 % (1.0-6.0); HEMATOCRIT 41.5 % (36-46); HEMOGLOBIN 13.8 g/dL (12.0-16.0); LYMPHOCYTES # (AUTO) 1.7 K/uL (1.0-4.8); LYMPHOCYTES % (AUTO) 30.5 % (22.0-44.0); MEAN CORPUSCULAR HGB CONC 33.3 G/dL (31.0-37.0); MEAN CORPUSCULAR VOLUME 93 fL (80-100); MONOCYTES # (AUTO) 0.5 K/uL (0.1-1.0); MONOCYTES % (AUTO) 8.4 % (2.0-9.0); NEUTROPHILS # (AUTO) 3.4 K/uL (1.8-7.7); NEUTROPHILS % (AUTO) 60.5 % (40.0-70.0); PLATELET COUNT (AUTO) 119 K/uL (150-450); RED BLOOD CELL COUNT(AUTO) 4.46 MIL/uL (4.00-5.20); RED CELL DISTRIBUTION WIDTH 13.9 % (11.5-14.5)
[2020-11-01 10:10] LABS: ANION GAP 13 mmol/L (8-16); CALCIUM, TOTAL 8.4 mg/dL (8.8-10.5); CARBON DIOXIDE 18 mmol/L (22-29); CHLORIDE 109 mmol/L (98-107); CREATININE 0.68 mg/dL (0.60-1.30); GLOMERULAR FILTR. RATE CALC > 60 mL/min (>60); GLUCOSE,RANDOM 90 mg/dL (70-110); POTASSIUM 3.5 mmol/L (3.5-5.1); SODIUM SERUM 140 mmol/L (136-145); UREA NITROGEN, BLOOD 10 mg/dL (7-18)
[2020-11-01 10:22] LABS: ALANINE AMINOTRANSFERASE 63 U/L (12-78); ALBUMIN 3.6 g/dL (3.4-5.0); ALKALINE PHOSPHATASE 62 U/L (46-116); ASPARTATE AMINOTRANSFERASE 30 U/L (15-37); BILIRUBIN,TOTAL 0.4 mg/dL (0.1-1.0); HCG,QUANTITATIVE < 1 mIU/mL (0-6); TOTAL PROTEIN, SERUM 7.4 g/dL (6.4-8.2); VALPROIC ACID 84 mcg/mL (50-100)
[2020-11-01 15:12] LABS: AMPHET/METH SCREEN,URINE NEGATIVE (NEGATIVE); BARBITURATE SCREEN, URINE NEGATIVE (NEGATIVE); BENZODIAZEPINES SCREEN,URINE NEGATIVE (NEGATIVE); CANNABINOID SCREEN,URINE NEGATIVE (NEGATIVE); COCAINE SCREEN,URINE NEGATIVE (NEGATIVE); METHADONE SCREEN, URINE NEGATIVE (NEGATIVE); OPIATE SCREEN,URINE NEGATIVE (NEGATIVE); PHENCYCLIDINE SCREEN,URINE NEGATIVE (NEGATIVE)
[2020-11-01] MEDS ORDERED: ZOLPIDEM TARTRATE 10 MG TABLET PO PRN (15:30)
[2020-11-01] MEDS ORDERED: OLANZapine 5 MG RAPDIS TABLET PO PRN (15:30)
[2020-11-01] MEDS: LORazepam 2 MG TABLET PO PRN (18:09)
[2020-11-01] MEDS ORDERED: MELATONIN 5 MG TABLET PO SCH (21:00)
[2020-11-01] MEDS: DIVALPROEX SODIUM 500 MG ER TABLET PO SCH (21:19)
[2020-11-01] MEDS: TraZODone HCL 100 MG TABLET PO SCH (21:19)
[2020-11-02] MEDS: LORazepam 2 MG TABLET PO PRN (08:01)
[2020-11-02] MEDS: DIVALPROEX SODIUM 500 MG ER TABLET PO SCH ×3 (08:01→20:22)
[2020-11-02] MEDS: OLANZapine 10 MG TABLET PO SCH (08:13)
[2020-11-02] MEDS ORDERED: MAG HYDROX/AL HYDROX/SIMETH ES 30 ML SUSPENSION UDCUP PO PRN ×2 (11:30→16:30)
[2020-11-02] MEDS ORDERED: PROMETHAZINE HCL 25 MG TABLET PO PRN (11:30)
[2020-11-02] MEDS ORDERED: ACETAMINOPHEN 325 MG TABLET PO PRN ×2 (11:30→16:30)
[2020-11-02] MEDS ORDERED: MAGNESIUM HYDROXIDE SUSPENSION 30 ML UDCUP PO PRN ×2 (11:30→16:30)
[2020-11-02] MEDS ORDERED: LOPERAMIDE HCL 2 MG CAPSULE PO PRN ×2 (11:30→16:30)
[2020-11-02] MEDS ORDERED: HydrOXYzine PAMOATE 50 MG CAPSULE PO PRN (11:30)
[2020-11-02] MEDS ORDERED: GuaiFENesin/D-METHORPHAN [SUGAR-FREE] 200-20MG/10 ML SYRUP UDCUP PO PRN ×2 (11:30→16:30)
[2020-11-02] MEDS ORDERED: DOCUSATE SODIUM 100 MG CAPSULE PO PRN (16:30)
[2020-11-02] MEDS ORDERED: ALBUTEROL SULFATE HFA 90 MCG/PUFF 8 GM INHALER IH PRN (16:30)
[2020-11-02] MEDS ORDERED: PETROLATUM,WHITE 28 GM JELLY TP PRN (16:30)
[2020-11-02] MEDS ORDERED: NICOTINE 14 MG/24 HOUR PATCH TD PRN (16:30)
[2020-11-02] MEDS ORDERED: CloNIDine HCL 0.1 MG TABLET PO PRN (16:30)
[2020-11-02] MEDS ORDERED: IBUPROFEN 400 MG TABLET PO PRN (16:30)
[2020-11-02] MEDS ORDERED: ONDANSETRON HCL 4 MG TABLET PO PRN (16:30)
[2020-11-02] MEDS: TraZODone HCL 100 MG TABLET PO SCH (20:22)
[2020-11-02] MEDS: THIAMINE 100 MG TABLET PO SCH (20:22)
[2020-11-02] MEDS: MELATONIN 5 MG TABLET PO SCH (20:22)
[2020-11-03 00:19] VITALS: BP 118/66
[2020-11-03 07:49] LABS: CHOL/HDL RATIO 4.2 (3.9-5.7)
[2020-11-03 07:58] LABS: HEMOGLOBIN A1C 4.6 % (3.8-5.6)
[2020-11-03] MEDS: FOLIC ACID 1 MG TABLET PO SCH (08:06)
[2020-11-03] MEDS: MULTIVITAMINS WITH MINERALS, THERAPEUTIC TABLET PO SCH (08:06)
[2020-11-03] MEDS: NALTREXONE HCL 50 MG TABLET PO SCH (08:06)
[2020-11-03] MEDS: THIAMINE 100 MG TABLET PO SCH ×2 (08:06→16:34)
[2020-11-03] MEDS: OMEGA-3/DHA/EPA/FISH OIL 1,000 MG CAPSULE PO SCH (08:06)
[2020-11-03] MEDS: OLANZapine 10 MG TABLET PO SCH (08:06)
[2020-11-03] MEDS: DIVALPROEX SODIUM 500 MG ER TABLET PO SCH ×3 (08:07→16:34)
[2020-11-03 08:43] VITALS: BP 119/87
[2020-11-03 12:24] VITALS: BP 119/87
[2020-11-03 16:21] VITALS: BP 107/65
[2020-11-03] MEDS: ZONISAMIDE 100 MG CAPSULE PO SCH (16:34)
[2020-11-03] MEDS: TOPIRAMATE 100 MG TABLET PO SCH (16:35)
[2020-11-03] MEDS: TraZODone HCL 100 MG TABLET PO SCH (20:35)
[2020-11-03] MEDS: MELATONIN 5 MG TABLET PO SCH (20:35)
[2020-11-04 00:05] VITALS: BP 108/62
[2020-11-04 08:06] VITALS: BP 127/89
[2020-11-04] MEDS: THIAMINE 100 MG TABLET PO SCH ×2 (08:06→16:29)
[2020-11-04] MEDS: OLANZapine 10 MG TABLET PO SCH (08:06)
[2020-11-04] MEDS: ZONISAMIDE 100 MG CAPSULE PO SCH ×2 (08:06→16:29)
[2020-11-04] MEDS: NALTREXONE HCL 50 MG TABLET PO SCH (08:06)
[2020-11-04] MEDS: OMEGA-3/DHA/EPA/FISH OIL 1,000 MG CAPSULE PO SCH (08:06)
[2020-11-04] MEDS: FOLIC ACID 1 MG TABLET PO SCH (08:06)
[2020-11-04] MEDS: MULTIVITAMINS WITH MINERALS, THERAPEUTIC TABLET PO SCH (08:06)
[2020-11-04] MEDS: DIVALPROEX SODIUM 500 MG ER TABLET PO SCH ×3 (08:06→16:29)
[2020-11-04] MEDS: TOPIRAMATE 100 MG TABLET PO SCH ×2 (08:06→16:29)
[2020-11-04 12:12] VITALS: BP 127/89
[2020-11-04 16:01] VITALS: BP 100/61
[2020-11-04] MEDS: TraZODone HCL 100 MG TABLET PO SCH (20:53)
[2020-11-04] MEDS: MELATONIN 5 MG TABLET PO SCH (20:53)
[2020-11-05 01:14] VITALS: BP 102/63
[2020-11-05 08:00] VITALS: BP 121/74
[2020-11-05] MEDS: TOPIRAMATE 100 MG TABLET PO SCH ×2 (08:07→16:12)
[2020-11-05] MEDS: ZONISAMIDE 100 MG CAPSULE PO SCH ×2 (08:07→16:12)
[2020-11-05] MEDS: DIVALPROEX SODIUM 500 MG ER TABLET PO SCH ×3 (08:07→16:12)
[2020-11-05] MEDS: MULTIVITAMINS WITH MINERALS, THERAPEUTIC TABLET PO SCH (08:08)
[2020-11-05] MEDS: OMEGA-3/DHA/EPA/FISH OIL 1,000 MG CAPSULE PO SCH (08:08)
[2020-11-05] MEDS: THIAMINE 100 MG TABLET PO SCH ×2 (08:08→16:12)
[2020-11-05] MEDS: FLUoxetine HCL 20 MG CAPSULE PO SCH (08:08)
[2020-11-05] MEDS: NALTREXONE HCL 50 MG TABLET PO SCH (08:08)
[2020-11-05] MEDS: FOLIC ACID 1 MG TABLET PO SCH (08:08)
[2020-11-05] MEDS: OLANZapine 10 MG TABLET PO SCH (08:13)
[2020-11-05] MEDS ORDERED: FLUO20CA36 PO (14:49)
[2020-11-05] MEDS ORDERED: OLAN10 PO (14:49)
[2020-11-05] MEDS ORDERED: OMEG-135 PO (14:49)
[2020-11-05] MEDS ORDERED: [UNRECOGNIZED DRUG - CODE] PO (14:49)
[2020-11-05] MEDS ORDERED: DIVA-80 PO (14:49)
[2020-11-05] MEDS ORDERED: TOPI100T37 PO (14:49)
[2020-11-05] MEDS ORDERED: MELA5TAB3 PO (14:49)
[2020-11-05 16:11] VITALS: BP 111/75
[2020-11-05] MEDS: MELATONIN 5 MG TABLET PO SCH (20:30)
[2020-11-05] MEDS: TraZODone HCL 100 MG TABLET PO SCH (20:31)
[2020-11-06 00:54] VITALS: BP 115/62
[2020-11-06] MEDS: DIVALPROEX SODIUM 500 MG ER TABLET PO SCH ×2 (08:09→12:01)
[2020-11-06] MEDS: NALTREXONE HCL 50 MG TABLET PO SCH (08:09)
[2020-11-06] MEDS: OMEGA-3/DHA/EPA/FISH OIL 1,000 MG CAPSULE PO SCH (08:09)
[2020-11-06] MEDS: ZONISAMIDE 100 MG CAPSULE PO SCH (08:09)
[2020-11-06] MEDS: THIAMINE 100 MG TABLET PO SCH (08:09)
[2020-11-06] MEDS: TOPIRAMATE 100 MG TABLET PO SCH (08:09)
[2020-11-06] MEDS: FOLIC ACID 1 MG TABLET PO SCH (08:09)
[2020-11-06] MEDS: FLUoxetine HCL 20 MG CAPSULE PO SCH (08:09)
[2020-11-06] MEDS: MULTIVITAMINS WITH MINERALS, THERAPEUTIC TABLET PO SCH (08:10)
[2020-11-06] MEDS: OLANZapine 10 MG TABLET PO SCH (08:10)
[2020-11-06 08:42] VITALS: BP 120/68
[2020-11-06] MEDS ORDERED: MELA5TAB21 PO (12:45)
[2020-11-06] MEDS ORDERED: FLUO20CA36 PO (12:46)
== END 2020-11-06 13:10 | disposition home or self-care (01) | DRG 750 ==
LOC: EMS 08:22 → B2S 11-02 06:00
PROVIDERS: ADMIT Psychiatry & Neurology Psychiatry; ATTEND Psychiatry & Neurology Psychiatry
DX: F25.0 Schizoaffective disorder, bipolar type (principal); D69.6 Thrombocytopenia, unspecified; R45.851 Suicidal ideations; F84.0 Autistic disorder; F90.9 Attention-deficit hyperactivity disorder, unspecified type; Z20.822 Contact with and (suspected) exposure to COVID-19; E78.5 Hyperlipidemia, unspecified
CPT/HCPCS: 80053; 80061; 80164; 83036; 84702; 85025; 99285; A9575; G0480

== ENCOUNTER 2020-12-01 09:53 | Emergency (ER) | payer MEDICAID, OTHER ==
[~2020-12-01] VITALS: Ht 175.3 cm; Wt 85.0 kg
[~2020-12-01 09:53] MED LIST changes: +FLUO20CA36 PO; +MELA5TAB21 PO; -MELA5TAB3 PO; +MELA5TAB40 PO; +OLAN10 PO; -TRAZ-257 PO; +ZONI100C87 PO
[2020-12-01 12:42] VITALS: BP 132/71
== END 2020-12-01 12:41 | disposition home or self-care (01) ==
LOC: EMS 09:57
DX: F25.1 Schizoaffective disorder, depressive type (principal); R45.851 Suicidal ideations; F31.9 Bipolar disorder, unspecified; Z88.8 Allergy status to other drugs, medicaments and biological substances; Z79.899 Other long term (current) drug therapy
CPT/HCPCS: 99284; Z7502

== ENCOUNTER 2020-12-19 05:40 | Emergency (ER) | payer OTHER ==
[~2020-12-19] VITALS: Ht 175.3 cm; Wt 90.9 kg
[2020-12-19] MEDS ORDERED: ACETAMINOPHEN 325 MG TABLET PO ONE (06:30)
[2020-12-19 06:51] VITALS: BP 116/73
== END 2020-12-19 08:12 | disposition home or self-care (01) ==
LOC: EMS 05:42
DX: S09.90XA Unspecified injury of head, initial encounter (principal); F31.9 Bipolar disorder, unspecified; Z91.011 Allergy to milk products; Z91.018 Allergy to other foods; W01.0XXA Fall on same level from slipping, tripping and stumbling without subsequent striking against object, initial encounter; Y93.89 Activity, other specified; Y92.098 Other place in other non-institutional residence as the place of occurrence of the external cause; Y99.8 Other external cause status
CPT/HCPCS: 99283

== ENCOUNTER 2020-12-20 18:54 | Emergency (ER) | payer OTHER ==
[~2020-12-20] VITALS: Ht 175.3 cm; Wt 90.9 kg
[2020-12-20] MEDS ORDERED: IBUPROFEN 600 MG TABLET PO ONE (19:45)
[2020-12-20 20:00] VITALS: BP 129/70
== END 2020-12-20 20:50 | disposition home or self-care (01) ==
LOC: EMS 18:56
DX: M79.604 Pain in right leg (principal); F31.9 Bipolar disorder, unspecified; Z91.011 Allergy to milk products; Z91.018 Allergy to other foods
CPT/HCPCS: 99283

== ENCOUNTER 2021-01-09 01:53 | Emergency (ER) | payer OTHER ==
[~2021-01-09] VITALS: Ht 175.3 cm; Wt 91.0 kg
[~2021-01-09 01:53] MED LIST changes: -MELA5TAB21 PO; -OLAN10TA26 PO; -ZONI100C31 PO
[2021-01-09 06:08] VITALS: BP 126/98
== END 2021-01-09 06:00 | disposition home or self-care (01) ==
LOC: EMS 01:57
DX: F98.8 Other specified behavioral and emotional disorders with onset usually occurring in childhood and adolescence (principal); F84.0 Autistic disorder; Z91.011 Allergy to milk products; Z79.899 Other long term (current) drug therapy
CPT/HCPCS: 99283; Z7502

== ENCOUNTER 2021-01-12 03:33 | Emergency (ER) | payer OTHER ==
[~2021-01-12] VITALS: Ht 175.3 cm; Wt 90.9 kg
[2021-01-12] MEDS ORDERED: ACETAMINOPHEN 500 MG TABLET PO ONE (03:45)
[2021-01-12 05:59] VITALS: BP 115/70
== END 2021-01-12 06:17 | disposition home or self-care (01) ==
LOC: EMS 03:34
DX: S93.401A Sprain of unspecified ligament of right ankle, initial encounter (principal); F25.9 Schizoaffective disorder, unspecified; F31.9 Bipolar disorder, unspecified; Z91.018 Allergy to other foods; Z79.899 Other long term (current) drug therapy; X58.XXXA Exposure to other specified factors, initial encounter; Y93.89 Activity, other specified; Y92.89 Other specified places as the place of occurrence of the external cause; Y99.8 Other external cause status
CPT/HCPCS: 29540; 99283

== ENCOUNTER → 2021-01-14 | Emergency (ER) | payer OTHER ==
[~2021-01-14] VITALS: Ht 175.3 cm; Wt 90.9 kg
[2021-01-14 08:13] VITALS: BP 124/76
== END | disposition home or self-care (01) ==
LOC: EMS 05:02
DX: S00.93XA Contusion of unspecified part of head, initial encounter (principal); F90.9 Attention-deficit hyperactivity disorder, unspecified type; F25.9 Schizoaffective disorder, unspecified; F31.9 Bipolar disorder, unspecified; F84.0 Autistic disorder; W06.XXXA Fall from bed, initial encounter; Y93.89 Activity, other specified; Y92.89 Other specified places as the place of occurrence of the external cause; Y99.8 Other external cause status
CPT/HCPCS: 99283

== ENCOUNTER 2021-01-17 16:45 | Emergency (ER) | payer OTHER ==
[~2021-01-17] VITALS: Ht 175.3 cm; Wt 90.9 kg
[2021-01-17 16:51] VITALS: BP 130/86
[2021-01-17] MEDS ORDERED: IBUPROFEN 600 MG TABLET PO ONE (17:00)
[2021-01-17] MEDS ORDERED: LOPERAMIDE HCL 2 MG CAPSULE PO ONE (17:00)
[2021-01-17 17:17] LABS: BASOPHILS % (AUTO) 0.4 % (0.0-2.0); EOSINOPHILS % (AUTO) 0 % (1.0-6.0); HEMATOCRIT 35.3 % (36-46); HEMOGLOBIN 11.9 g/dL (12.0-16.0); LYMPHOCYTES # (AUTO) 1.4 K/uL (1.0-4.8); LYMPHOCYTES % (AUTO) 24.6 % (22.0-44.0); MEAN CORPUSCULAR HGB CONC 33.6 G/dL (31.0-37.0); MEAN CORPUSCULAR VOLUME 95 fL (80-100); MONOCYTES # (AUTO) 0.6 K/uL (0.1-1.0); NEUTROPHILS # (AUTO) 3.8 K/uL (1.8-7.7); PLATELET COUNT (AUTO) 111 K/uL (150-450); RED CELL DISTRIBUTION WIDTH 13.6 % (11.5-14.5)
[2021-01-17 17:27] LABS: ANION GAP 9 mmol/L (8-16); CALCIUM, TOTAL 8.2 mg/dL (8.8-10.5); CARBON DIOXIDE 24 mmol/L (22-29); CHLORIDE 110 mmol/L (98-107); CREATININE 0.68 mg/dL (0.60-1.30); GLOMERULAR FILTR. RATE CALC > 60 mL/min (>60); GLUCOSE,RANDOM 120 mg/dL (70-110); POTASSIUM 3.4 mmol/L (3.5-5.1); SODIUM SERUM 143 mmol/L (136-145); UREA NITROGEN, BLOOD 15 mg/dL (7-18)
[2021-01-17 17:35] LABS: ALANINE AMINOTRANSFERASE 29 U/L (12-78); ALBUMIN 3.5 g/dL (3.4-5.0); ALKALINE PHOSPHATASE 63 U/L (46-116); ASPARTATE AMINOTRANSFERASE 16 U/L (15-37); BILIRUBIN,TOTAL 0.3 mg/dL (0.1-1.0); HCG,QUANTITATIVE 1 mIU/mL (0-6); LIPASE 193 U/L (73-393); TOTAL PROTEIN, SERUM 6.7 g/dL (6.4-8.2)
== END 2021-01-17 18:24 | disposition home or self-care (01) ==
LOC: EMS 16:47
DX: R10.84 Generalized abdominal pain (principal); F31.9 Bipolar disorder, unspecified; F90.9 Attention-deficit hyperactivity disorder, unspecified type; F84.0 Autistic disorder; F99 Mental disorder, not otherwise specified; Z91.011 Allergy to milk products
CPT/HCPCS: 80053; 83690; 84702; 85025; 99283

== ENCOUNTER 2021-01-19 08:18 | Emergency (ER) | payer OTHER ==
[~2021-01-19] VITALS: Ht 175.3 cm; Wt 90.9 kg
[2021-01-19] MEDS ORDERED: ACETAMINOPHEN 325 MG TABLET PO ONE (08:45)
[2021-01-19 13:12] VITALS: BP 113/65
== END 2021-01-19 15:10 | disposition home or self-care (01) ==
LOC: EMS 08:18
DX: M25.512 Pain in left shoulder (principal); R45.851 Suicidal ideations; F31.9 Bipolar disorder, unspecified
CPT/HCPCS: 99283; 99284

== ENCOUNTER 2021-01-19 20:04 | Emergency (ER) | payer OTHER ==
[~2021-01-19] VITALS: Ht 175.3 cm; Wt 90.9 kg
[2021-01-19] MEDS ORDERED: ACETAMINOPHEN 500 MG TABLET PO ONE (20:30)
[2021-01-19 21:00] VITALS: BP 119/63
== END 2021-01-19 21:53 | disposition home or self-care (01) ==
LOC: EMS 20:06
DX: S50.01XA Contusion of right elbow, initial encounter (principal); F31.9 Bipolar disorder, unspecified; Z88.8 Allergy status to other drugs, medicaments and biological substances; Z79.899 Other long term (current) drug therapy; W01.198A Fall on same level from slipping, tripping and stumbling with subsequent striking against other object, initial encounter; Y93.89 Activity, other specified; Y92.89 Other specified places as the place of occurrence of the external cause; Y99.8 Other external cause status
CPT/HCPCS: 99283

== ENCOUNTER 2021-01-27 06:36 | Inpatient (IN) | payer MEDICAID ==
[~2021-01-27] VITALS: Ht 175.3 cm; Wt 86.7 kg
[2021-01-27] MEDS ORDERED: ZOLPIDEM TARTRATE 10 MG TABLET PO PRN (10:15)
[2021-01-27] MEDS: HALOPERIDOL 5 MG TABLET PO PRN (12:32)
[2021-01-27] MEDS: LORazepam 2 MG TABLET PO PRN (12:33)
[2021-01-27 16:11] VITALS: BP 125/66
[2021-01-27] MEDS ORDERED: MAGNESIUM HYDROXIDE SUSPENSION 30 ML UDCUP PO PRN (18:15)
[2021-01-27] MEDS ORDERED: ONDANSETRON HCL 4 MG TABLET PO PRN (18:15)
[2021-01-27] MEDS ORDERED: ALBUTEROL SULFATE HFA 90 MCG/PUFF 8 GM INHALER IH PRN (18:15)
[2021-01-27] MEDS ORDERED: BENZOCAINE/MENTHOL LOZENGE PO PRN (18:15)
[2021-01-27] MEDS ORDERED: DOCUSATE SODIUM 100 MG CAPSULE PO PRN (18:15)
[2021-01-27] MEDS ORDERED: BACITRACIN 28 GM OINTMENT TP PRN (18:15)
[2021-01-27] MEDS ORDERED: PETROLATUM,WHITE 28 GM JELLY TP PRN (18:15)
[2021-01-27] MEDS ORDERED: MAG HYDROX/AL HYDROX/SIMETH ES 30 ML SUSPENSION UDCUP PO PRN (18:15)
[2021-01-27] MEDS ORDERED: OMEPRAZOLE 20 MG CAPSULE PO PRN (18:15)
[2021-01-27] MEDS ORDERED: CloNIDine HCL 0.1 MG TABLET PO PRN (18:15)
[2021-01-27] MEDS ORDERED: IBUPROFEN 600 MG TABLET PO PRN (18:15)
[2021-01-27] MEDS ORDERED: LORazepam 2 MG/ML VIAL ONE (19:40)
[2021-01-27] MEDS ORDERED: HALOPERIDOL LACTATE 5 MG/ML VIAL ONE (19:40)
[2021-01-27] MEDS ORDERED: DiphenhydrAMINE HCL 50 MG/ML VIAL ONE (19:40)
[2021-01-27] MEDS ORDERED: LORazepam 2 MG/ML VIAL IM ONE (19:45)
[2021-01-27] MEDS ORDERED: DiphenhydrAMINE HCL 50 MG/ML VIAL IM ONE (19:45)
[2021-01-27] MEDS ORDERED: HALOPERIDOL LACTATE 5 MG/ML VIAL IM ONE (19:45)
[2021-01-28] MEDS: ACETAMINOPHEN 325 MG TABLET PO PRN (06:45)
[2021-01-28 06:49] VITALS: BP 117/67
[2021-01-28] MEDS: HALOPERIDOL 5 MG TABLET PO PRN (08:03)
[2021-01-28] MEDS: LOPERAMIDE HCL 2 MG CAPSULE PO PRN (08:03)
[2021-01-28] MEDS: LORazepam 2 MG TABLET PO PRN ×3 (08:03→18:07)
[2021-01-28 08:11] LABS: BASOPHILS % (AUTO) 0.4 % (0.0-2.0); EOSINOPHILS % (AUTO) 0 % (1.0-6.0); HEMATOCRIT 39.5 % (36-46); HEMOGLOBIN 13.2 g/dL (12.0-16.0); LYMPHOCYTES # (AUTO) 1.9 K/uL (1.0-4.8); LYMPHOCYTES % (AUTO) 31.8 % (22.0-44.0); MEAN CORPUSCULAR HEMOGLOBIN 32.1 pg (26.0-34.0); MEAN CORPUSCULAR HGB CONC 33.5 G/dL (31.0-37.0); MEAN CORPUSCULAR VOLUME 96 fL (80-100); MONOCYTES # (AUTO) 0.4 K/uL (0.1-1.0); MONOCYTES % (AUTO) 7.3 % (2.0-9.0); NEUTROPHILS # (AUTO) 3.6 K/uL (1.8-7.7); NEUTROPHILS % (AUTO) 60.5 % (40.0-70.0); PLATELET COUNT (AUTO) 194 K/uL (150-450); RED BLOOD CELL COUNT(AUTO) 4.13 MIL/uL (4.00-5.20)
[2021-01-28 08:51] LABS: ALANINE AMINOTRANSFERASE 30 U/L (12-78); ALBUMIN 3.8 g/dL (3.4-5.0); ALKALINE PHOSPHATASE 70 U/L (46-116); ANION GAP 14 mmol/L (8-16); ASPARTATE AMINOTRANSFERASE 25 U/L (15-37); BILIRUBIN,TOTAL 0.4 mg/dL (0.1-1.0); CALCIUM, TOTAL 8.7 mg/dL (8.8-10.5); CARBON DIOXIDE 21 mmol/L (22-29); CHLORIDE 108 mmol/L (98-107); CHOLESTEROL 146 mg/dL (131-200); CREATININE 0.68 mg/dL (0.60-1.30); FREE T4 (FREE THYROXINE) 0.85 ng/dL (0.76-1.46); GLOMERULAR FILTR. RATE CALC > 60 mL/min (>60); GLUCOSE,RANDOM 112 mg/dL (70-110); HCG,QUANTITATIVE < 1 mIU/mL (0-6); HDL CHOLESTEROL 49 mg/dL (40-60); LDL CHOL (CALC.) 73 mg/dL (0-130); POTASSIUM 3.5 mmol/L (3.5-5.1); SODIUM SERUM 143 mmol/L (136-145); THYROID STIMULATING HORMONE 4.13 uIU/mL (0.36-3.74); TOTAL PROTEIN, SERUM 7.4 g/dL (6.4-8.2); TRIGLYCERIDES 120 mg/dL (15-150); UREA NITROGEN, BLOOD 9 mg/dL (7-18)
[2021-01-28 08:52] LABS: HEMOGLOBIN A1C 4.6 % (3.8-5.6)
[2021-01-28] MEDS: DIVALPROEX SODIUM 500 MG DR TABLET PO SCH ×2 (11:51→16:03)
[2021-01-28] MEDS: FLUoxetine HCL 20 MG CAPSULE PO SCH (11:52)
[2021-01-28] MEDS: TOPIRAMATE 100 MG TABLET PO SCH ×2 (12:08→16:02)
[2021-01-28] MEDS ORDERED: INFLUENZA VIRUS VACCINE QVS 2021-22 (6MO+)/PF 60 MCG/0.5 ML SYRINGE IM. ONE (14:15)
[2021-01-28 16:28] VITALS: BP 126/61
[2021-01-28] MEDS: OLANZapine 10 MG TABLET PO SCH (20:08)
[2021-01-29 05:16] VITALS: BP 127/62
[2021-01-29 08:25] VITALS: BP 116/64
[2021-01-29] MEDS: DIVALPROEX SODIUM 500 MG DR TABLET PO SCH ×3 (08:28→16:03)
[2021-01-29] MEDS: TOPIRAMATE 100 MG TABLET PO SCH ×2 (08:28→16:04)
[2021-01-29] MEDS: FLUoxetine HCL 20 MG CAPSULE PO SCH (08:29)
[2021-01-29] MEDS ORDERED: LORazepam 2 MG/ML VIAL IM ONE (14:30)
[2021-01-29] MEDS ORDERED: DiphenhydrAMINE HCL 50 MG/ML VIAL IM ONE (14:30)
[2021-01-29] MEDS ORDERED: HALOPERIDOL LACTATE 5 MG/ML VIAL IM ONE (14:30)
[2021-01-29] MEDS: ACETAMINOPHEN 325 MG TABLET PO PRN (16:19)
[2021-01-29] MEDS: LORazepam 2 MG TABLET PO PRN (16:19)
[2021-01-29 16:25] VITALS: BP 144/89
[2021-01-29 17:19] VITALS: BP 120/65
[2021-01-29] MEDS: OLANZapine 10 MG TABLET PO SCH (20:18)
[2021-01-30 00:57] VITALS: BP 116/62
[2021-01-30 08:16] VITALS: BP 122/81
[2021-01-30] MEDS: DIVALPROEX SODIUM 500 MG DR TABLET PO SCH ×3 (09:59→16:35)
[2021-01-30] MEDS: TOPIRAMATE 100 MG TABLET PO SCH ×2 (09:59→16:35)
[2021-01-30] MEDS: FLUoxetine HCL 20 MG CAPSULE PO SCH (09:59)
[2021-01-30] MEDS: LORazepam 2 MG TABLET PO PRN ×3 (10:00→23:54)
[2021-01-30] MEDS: HALOPERIDOL 5 MG TABLET PO PRN ×2 (12:42→17:30)
[2021-01-30] MEDS: LOPERAMIDE HCL 2 MG CAPSULE PO PRN (15:59)
[2021-01-30 16:10] VITALS: BP 119/78
[2021-01-30] MEDS: OLANZapine 10 MG TABLET PO SCH (20:02)
[2021-01-31 00:20] VITALS: BP 124/61
[2021-01-31] MEDS: ACETAMINOPHEN 325 MG TABLET PO PRN (02:46)
[2021-01-31 08:15] VITALS: BP 117/80
[2021-01-31] MEDS: DIVALPROEX SODIUM 500 MG DR TABLET PO SCH ×2 (08:30→12:24)
[2021-01-31] MEDS: FLUoxetine HCL 20 MG CAPSULE PO SCH (08:30)
[2021-01-31] MEDS: TOPIRAMATE 100 MG TABLET PO SCH (08:30)
[2021-01-31] MEDS: LORazepam 2 MG TABLET PO PRN (08:30)
[2021-01-31] MEDS: HALOPERIDOL 5 MG TABLET PO PRN (08:30)
[2021-01-31] MEDS ORDERED: DIVA-112 PO (09:07)
[2021-01-31] MEDS ORDERED: FLUO20CA36 PO (09:07)
[2021-01-31] MEDS ORDERED: OLAN10TA74 PO (09:08)
== END 2021-01-31 13:01 | disposition home or self-care (01) | DRG 750 ==
LOC: B3A 10:52
PROVIDERS: ADMIT Psychiatry & Neurology Psychiatry; ATTEND Psychiatry & Neurology Psychiatry
DX: F25.9 Schizoaffective disorder, unspecified (principal); E78.00 Pure hypercholesterolemia, unspecified; F31.9 Bipolar disorder, unspecified; F84.0 Autistic disorder; G47.00 Insomnia, unspecified; K59.00 Constipation, unspecified; F41.9 Anxiety disorder, unspecified; F19.10 Other psychoactive substance abuse, uncomplicated; Z88.8 Allergy status to other drugs, medicaments and biological substances; Z72.0 Tobacco use; Z71.6 Tobacco abuse counseling
CPT/HCPCS: 80053; 80061; 80164; 83036; 84436; 84439; 84443; 84702; 85025; 86592; 87081; 90686; G0480; J1200; J1630; J2060

== ENCOUNTER 2021-02-05 08:34 | Emergency (ER) | payer MEDICAID, OTHER ==
[~2021-02-05 08:34] MED LIST changes: +DIVA-112 PO; -DIVA-80 PO; -MELA5TAB40 PO; -OLAN10 PO; +OLAN10TA74 PO; -OMEG-135 PO; -ZONI100C87 PO
[2021-02-05 10:02] LABS: BASOPHILS % (AUTO) 0.8 % (0.0-2.0); EOSINOPHILS % (AUTO) 0 % (1.0-6.0); HEMATOCRIT 35.9 % (36-46); HEMOGLOBIN 12.1 g/dL (12.0-16.0); LYMPHOCYTES # (AUTO) 1.6 K/uL (1.0-4.8); LYMPHOCYTES % (AUTO) 29.8 % (22.0-44.0); MEAN CORPUSCULAR HEMOGLOBIN 32.1 pg (26.0-34.0); MEAN CORPUSCULAR HGB CONC 33.7 G/dL (31.0-37.0); MEAN CORPUSCULAR VOLUME 95 fL (80-100); MONOCYTES # (AUTO) 0.5 K/uL (0.1-1.0); MONOCYTES % (AUTO) 8.5 % (2.0-9.0); NEUTROPHILS # (AUTO) 3.3 K/uL (1.8-7.7); NEUTROPHILS % (AUTO) 60.9 % (40.0-70.0); PLATELET COUNT (AUTO) 151 K/uL (150-450); RED BLOOD CELL COUNT(AUTO) 3.77 MIL/uL (4.00-5.20); RED CELL DISTRIBUTION WIDTH 13.2 % (11.5-14.5)
[2021-02-05 10:10] LABS: ANION GAP 9 mmol/L (8-16); CALCIUM, TOTAL 8.5 mg/dL (8.8-10.5); CARBON DIOXIDE 23 mmol/L (22-29); CHLORIDE 111 mmol/L (98-107); CREATININE 0.53 mg/dL (0.60-1.30); GLOMERULAR FILTR. RATE CALC > 60 mL/min (>60); GLUCOSE,RANDOM 113 mg/dL (70-110); POTASSIUM 3.8 mmol/L (3.5-5.1); SODIUM SERUM 143 mmol/L (136-145); UREA NITROGEN, BLOOD 11 mg/dL (7-18)
[2021-02-05 10:21] LABS: ALANINE AMINOTRANSFERASE 14 U/L (12-78); ALBUMIN 3.4 g/dL (3.4-5.0); ALKALINE PHOSPHATASE 63 U/L (46-116); ASPARTATE AMINOTRANSFERASE 10 U/L (15-37); BILIRUBIN,TOTAL 0.2 mg/dL (0.1-1.0); HCG,QUANTITATIVE < 1 mIU/mL (0-6); LIPASE 141 U/L (73-393); TOTAL PROTEIN, SERUM 6.9 g/dL (6.4-8.2); VALPROIC ACID 93 mcg/mL (50-100)
[2021-02-05 10:27] LABS: COVID AG,FIA SOURCE NASOPHARYNGEAL
[2021-02-05 10:36] LABS: BILIRUBIN,URINE NEGATIVE (NEGATIVE); GLUCOSE, URINE (UA) NEGATIVE (NEGATIVE); KETONES,URINE NEGATIVE (NEGATIVE); LEUKOCYTE ESTERASE ,URINE NEGATIVE (NEGATIVE); NITRATE,URINE NEGATIVE (NEGATIVE); OCCULT BLOOD,URINE NEGATIVE (NEGATIVE); PROTEIN,URINE NEGATIVE (NEGATIVE); UROBILINOGEN,URINE 0.2 mg/dL (<=1.0)
[2021-02-05 10:38] LABS: APPEARANCE,URINE CLEAR (CLEAR)
[2021-02-05 10:53] VITALS: BP 120/66
== END 2021-02-05 11:00 | disposition home or self-care (01) ==
LOC: EMS 08:36
DX: R10.84 Generalized abdominal pain (principal); Z20.822 Contact with and (suspected) exposure to COVID-19
CPT/HCPCS: 80053; 80164; 81003; 83690; 84702; 85025; 99283

== ENCOUNTER 2021-02-06 18:46 | Inpatient (IN) | payer MEDICAID, OTHER ==
[~2021-02-06] VITALS: Ht 175.3 cm; Wt 88.2 kg
[2021-02-06 20:36] LABS: BASOPHILS % (AUTO) 1.1 % (0.0-2.0); EOSINOPHILS % (AUTO) 0 % (1.0-6.0); HEMOGLOBIN 11.9 g/dL (12.0-16.0); LYMPHOCYTES # (AUTO) 2.5 K/uL (1.0-4.8); LYMPHOCYTES % (AUTO) 29.5 % (22.0-44.0); MEAN CORPUSCULAR HEMOGLOBIN 32.6 pg (26.0-34.0); MEAN CORPUSCULAR VOLUME 96 fL (80-100); MONOCYTES # (AUTO) 0.6 K/uL (0.1-1.0); MONOCYTES % (AUTO) 6.7 % (2.0-9.0); NEUTROPHILS # (AUTO) 5.2 K/uL (1.8-7.7); NEUTROPHILS % (AUTO) 62.7 % (40.0-70.0); PLATELET COUNT (AUTO) 174 K/uL (150-450); RED BLOOD CELL COUNT(AUTO) 3.66 MIL/uL (4.00-5.20); RED CELL DISTRIBUTION WIDTH 13.5 % (11.5-14.5)
[2021-02-06 20:46] LABS: ANION GAP 11 mmol/L (8-16); CALCIUM, TOTAL 8.7 mg/dL (8.8-10.5); CARBON DIOXIDE 23 mmol/L (22-29); CHLORIDE 107 mmol/L (98-107); CREATININE 0.63 mg/dL (0.60-1.30); GLOMERULAR FILTR. RATE CALC > 60 mL/min (>60); GLUCOSE,RANDOM 98 mg/dL (70-110); POTASSIUM 3.6 mmol/L (3.5-5.1); SODIUM SERUM 141 mmol/L (136-145); UREA NITROGEN, BLOOD 15 mg/dL (7-18)
[2021-02-06 20:50] LABS: COVID AG,FIA SOURCE NASOPHARYNGEAL
[2021-02-06] MEDS ORDERED: LORazepam 2 MG TABLET PO PRN (21:00)
[2021-02-06 21:01] LABS: ALANINE AMINOTRANSFERASE 17 U/L (12-78); ALBUMIN 3.6 g/dL (3.4-5.0); ALKALINE PHOSPHATASE 60 U/L (46-116); ASPARTATE AMINOTRANSFERASE 13 U/L (15-37); BILIRUBIN,TOTAL 0.3 mg/dL (0.1-1.0); HCG,QUANTITATIVE < 1 mIU/mL (0-6); TOTAL PROTEIN, SERUM 7.3 g/dL (6.4-8.2)
[2021-02-07 00:20] LABS: CHOL/HDL RATIO 3.4 (3.9-5.7); CHOLESTEROL 162 mg/dL (131-200); HDL CHOLESTEROL 48 mg/dL (40-60); LDL CHOL (CALC.) 97 mg/dL (0-130); TRIGLYCERIDES 84 mg/dL (15-150)
[2021-02-07] MEDS: ZOLPIDEM TARTRATE 10 MG TABLET PO PRN (01:23)
[2021-02-07] MEDS: OLANZapine 5 MG RAPDIS TABLET PO PRN (02:34)
[2021-02-07] MEDS ORDERED: HALOPERIDOL LACTATE 5 MG/ML VIAL IM ONE (03:00)
[2021-02-07] MEDS ORDERED: DiphenhydrAMINE HCL 50 MG/ML VIAL IM ONE (03:00)
[2021-02-07] MEDS ORDERED: LORazepam 2 MG/ML VIAL IM ONE (03:00)
[2021-02-07 08:30] VITALS: BP 142/95
[2021-02-07] MEDS ORDERED: ESZOPICLONE 2 MG TABLET PO PRN (17:15)
[2021-02-07] MEDS ORDERED: ChlorproMAZINE HCL 100 MG TABLET PO PRN (17:15)
[2021-02-07] MEDS: TraZODone HCL 100 MG TABLET PO SCH (20:03)
[2021-02-07] MEDS: GABAPENTIN 300 MG CAPSULE PO SCH (20:04)
[2021-02-08 08:00] VITALS: BP 129/82
[2021-02-08] MEDS: LORazepam 1 MG TABLET PO PRN ×2 (08:17→13:04)
[2021-02-08] MEDS: DIVALPROEX SODIUM 500 MG DR TABLET PO SCH ×3 (08:18→16:54)
[2021-02-08] MEDS: TOPIRAMATE 100 MG TABLET PO SCH ×2 (08:18→16:54)
[2021-02-08] MEDS: GABAPENTIN 300 MG CAPSULE PO SCH ×4 (08:18→20:38)
[2021-02-08] MEDS: OLANZapine 10 MG RAPDIS TABLET PO SCH ×3 (08:19→16:54)
[2021-02-08] MEDS: BACITRACIN 28 GM OINTMENT TP SCH ×2 (09:29→16:54)
[2021-02-08] MEDS ORDERED: LOPERAMIDE HCL 2 MG CAPSULE PO PRN (15:15)
[2021-02-08] MEDS ORDERED: PROMETHAZINE HCL 25 MG TABLET PO PRN (15:15)
[2021-02-08] MEDS ORDERED: HydrOXYzine PAMOATE 50 MG CAPSULE PO PRN (15:15)
[2021-02-08] MEDS ORDERED: GuaiFENesin/D-METHORPHAN [SUGAR-FREE] 200-20MG/10 ML SYRUP UDCUP PO PRN (15:15)
[2021-02-08] MEDS ORDERED: MAG HYDROX/AL HYDROX/SIMETH ES 30 ML SUSPENSION UDCUP PO PRN (15:15)
[2021-02-08] MEDS ORDERED: MAGNESIUM HYDROXIDE SUSPENSION 30 ML UDCUP PO PRN (15:15)
[2021-02-08] MEDS ORDERED: ACETAMINOPHEN 325 MG TABLET PO PRN (15:15)
[2021-02-08] MEDS: THIAMINE 100 MG TABLET PO SCH (16:54)
[2021-02-08] MEDS: TraZODone HCL 100 MG TABLET PO SCH (20:39)
[2021-02-09] MEDS: ZOLPIDEM TARTRATE 10 MG TABLET PO PRN (02:17)
[2021-02-09 06:00] VITALS: BP 127/80
[2021-02-09 06:15] VITALS: BP 120/75
[2021-02-09 06:45] VITALS: BP 124/76
[2021-02-09 07:15] VITALS: BP 120/65
[2021-02-09] MEDS: OLANZapine 10 MG RAPDIS TABLET PO SCH ×3 (08:11→16:59)
[2021-02-09] MEDS: DIVALPROEX SODIUM 500 MG DR TABLET PO SCH ×3 (08:11→16:58)
[2021-02-09] MEDS: THIAMINE 100 MG TABLET PO SCH ×2 (08:11→16:59)
[2021-02-09] MEDS: MULTIVITAMINS WITH MINERALS, THERAPEUTIC TABLET PO SCH (08:11)
[2021-02-09] MEDS: FOLIC ACID 1 MG TABLET PO SCH (08:11)
[2021-02-09] MEDS: GABAPENTIN 300 MG CAPSULE PO SCH ×4 (08:12→20:32)
[2021-02-09] MEDS: TOPIRAMATE 100 MG TABLET PO SCH ×2 (08:12→16:58)
[2021-02-09] MEDS: LORazepam 1 MG TABLET PO PRN ×2 (08:15→19:00)
[2021-02-09] MEDS: BACITRACIN 28 GM OINTMENT TP SCH ×2 (08:16→17:01)
[2021-02-09 16:10] VITALS: BP 106/62
[2021-02-09] MEDS: OLANZapine 5 MG RAPDIS TABLET PO PRN (19:01)
[2021-02-09] MEDS: TraZODone HCL 100 MG TABLET PO SCH (20:32)
[2021-02-10 00:50] VITALS: BP 112/60
[2021-02-10] MEDS: LORazepam 1 MG TABLET PO PRN ×2 (07:07→13:10)
[2021-02-10] MEDS: OLANZapine 5 MG RAPDIS TABLET PO PRN (07:12)
[2021-02-10] MEDS: TOPIRAMATE 100 MG TABLET PO SCH ×2 (08:46→16:35)
[2021-02-10] MEDS: FOLIC ACID 1 MG TABLET PO SCH (08:46)
[2021-02-10] MEDS: MULTIVITAMINS WITH MINERALS, THERAPEUTIC TABLET PO SCH (08:46)
[2021-02-10] MEDS: DIVALPROEX SODIUM 500 MG DR TABLET PO SCH ×3 (08:46→16:35)
[2021-02-10] MEDS: GABAPENTIN 300 MG CAPSULE PO SCH ×4 (08:46→20:39)
[2021-02-10] MEDS: THIAMINE 100 MG TABLET PO SCH ×2 (08:46→16:35)
[2021-02-10] MEDS: BACITRACIN 28 GM OINTMENT TP SCH ×2 (08:47→16:35)
[2021-02-10 09:10] VITALS: BP 110/72
[2021-02-10] MEDS: OLANZapine 10 MG RAPDIS TABLET PO SCH ×3 (09:13→16:35)
[2021-02-10 16:14] VITALS: BP 130/61
[2021-02-10] MEDS ORDERED: GABA-1181 PO ×2 (20:25)
[2021-02-10] MEDS ORDERED: OMEG-135 PO (20:25)
[2021-02-10] MEDS ORDERED: OLAN10TA26 PO (20:25)
[2021-02-10] MEDS ORDERED: TRAZ-257 PO (20:25)
[2021-02-10] MEDS ORDERED: DIVA-112 PO (20:25)
[2021-02-10] MEDS ORDERED: MELA5TAB40 PO (20:25)
[2021-02-10] MEDS ORDERED: TOPI100T37 PO (20:25)
[2021-02-10] MEDS: TraZODone HCL 100 MG TABLET PO SCH (20:39)
[2021-02-11 00:30] VITALS: BP 122/64
[2021-02-11] MEDS: ZOLPIDEM TARTRATE 10 MG TABLET PO PRN (01:58)
[2021-02-11] MEDS: LORazepam 1 MG TABLET PO PRN (01:58)
[2021-02-11] MEDS ORDERED: GABA-1181 PO ×2 (08:00)
[2021-02-11] MEDS ORDERED: MELA5TAB40 PO (08:01)
[2021-02-11] MEDS ORDERED: OLAN10TA26 PO (08:01)
[2021-02-11] MEDS ORDERED: OMEG-135 PO (08:02)
[2021-02-11] MEDS ORDERED: TRAZ-257 PO (08:04)
[2021-02-11] MEDS: MULTIVITAMINS WITH MINERALS, THERAPEUTIC TABLET PO SCH (08:18)
[2021-02-11] MEDS: TOPIRAMATE 100 MG TABLET PO SCH (08:18)
[2021-02-11] MEDS: GABAPENTIN 300 MG CAPSULE PO SCH ×2 (08:18→12:05)
[2021-02-11] MEDS: THIAMINE 100 MG TABLET PO SCH (08:18)
[2021-02-11] MEDS: OLANZapine 10 MG RAPDIS TABLET PO SCH ×2 (08:18→12:07)
[2021-02-11] MEDS: FOLIC ACID 1 MG TABLET PO SCH (08:18)
[2021-02-11] MEDS: DIVALPROEX SODIUM 500 MG DR TABLET PO SCH ×2 (08:18→12:05)
[2021-02-11] MEDS: BACITRACIN 28 GM OINTMENT TP SCH (08:21)
[2021-02-11 10:22] VITALS: BP 126/65
== END 2021-02-11 13:15 | disposition home or self-care (01) | DRG 750 ==
LOC: EMS 18:50 → 3EC 02-07 04:06 → 3EI 02-08 19:50 → B3A 02-09 13:42
PROVIDERS: ADMIT Psychiatry & Neurology Psychiatry; ATTEND Psychiatry & Neurology Psychiatry
DX: F25.0 Schizoaffective disorder, bipolar type (principal); F72 Severe intellectual disabilities; F41.9 Anxiety disorder, unspecified; Z20.822 Contact with and (suspected) exposure to COVID-19; G40.909 Epilepsy, unspecified, not intractable, without status epilepticus; G47.00 Insomnia, unspecified; I10 Essential (primary) hypertension; K21.9 Gastro-esophageal reflux disease without esophagitis; K59.00 Constipation, unspecified; Z55.9 Problems related to education and literacy, unspecified; Z63.9 Problem related to primary support group, unspecified; Z65.3 Problems related to other legal circumstances; Z91.19 Patient's noncompliance with other medical treatment and regimen; Z88.8 Allergy status to other drugs, medicaments and biological substances
CPT/HCPCS: 80053; 80061; 80164; 84702; 85025; 99291; G0480; J1200; J1630; J2060

== ENCOUNTER 2021-02-13 20:47 | Emergency (ER) | payer MEDICAID, OTHER ==
[~2021-02-13] VITALS: Ht 175.3 cm; Wt 86.4 kg
[~2021-02-13 20:47] MED LIST changes: -FLUO20CA36 PO; +GABA-1181 PO; +MELA5TAB40 PO; +OLAN10TA26 PO; -OLAN10TA74 PO; +OMEG-135 PO; +TRAZ-257 PO
[2021-02-13 21:35] VITALS: BP 115/65
[2021-02-13] MEDS ORDERED: ACETAMINOPHEN 325 MG TABLET PO ONE ×2 (21:45)
== END 2021-02-13 23:50 | disposition home or self-care (01) ==
LOC: EMS 21:01
DX: T24.111A Burn of first degree of right thigh, initial encounter (principal); F31.9 Bipolar disorder, unspecified; Z79.899 Other long term (current) drug therapy; Z91.018 Allergy to other foods; X10.0XXA Contact with hot drinks, initial encounter; Y93.89 Activity, other specified; Y92.89 Other specified places as the place of occurrence of the external cause; Y99.8 Other external cause status
CPT/HCPCS: 99282; Z7502; Z7610

== ENCOUNTER 2021-02-14 17:40 | Emergency (ER) | payer OTHER ==
[2021-02-14 20:44] VITALS: BP 114/76
[2021-02-14] MEDS ORDERED: DiphenhydrAMINE HCL 25 MG CAPSULE PO ONE (21:30)
== END 2021-02-14 21:48 | disposition home or self-care (01) ==
LOC: EMS 17:40
DX: T17.928A Food in respiratory tract, part unspecified causing other injury, initial encounter (principal); F31.9 Bipolar disorder, unspecified; Z88.8 Allergy status to other drugs, medicaments and biological substances; Z79.899 Other long term (current) drug therapy; X58.XXXA Exposure to other specified factors, initial encounter; Y93.89 Activity, other specified; Y92.89 Other specified places as the place of occurrence of the external cause; Y99.8 Other external cause status
CPT/HCPCS: 99283

== ENCOUNTER 2021-02-17 09:56 | Emergency (ER) | payer OTHER ==
[~2021-02-17] VITALS: Ht 175.3 cm; Wt 90.9 kg
[2021-02-17 10:04] VITALS: BP 122/64
[2021-02-17] MEDS ORDERED: ACETAMINOPHEN 500 MG TABLET PO ONE (10:30)
== END 2021-02-17 11:24 | disposition home or self-care (01) ==
LOC: EMS 09:58
DX: F31.9 Bipolar disorder, unspecified (principal); R51.9 Headache, unspecified; Z88.8 Allergy status to other drugs, medicaments and biological substances; Z79.899 Other long term (current) drug therapy
CPT/HCPCS: 99283

== ENCOUNTER 2021-02-20 19:39 | Emergency (ER) | payer OTHER ==
[~2021-02-20] VITALS: Ht 175.3 cm; Wt 90.9 kg
[2021-02-20] MEDS ORDERED: ACETAMINOPHEN 500 MG TABLET PO ONE (19:45)
[2021-02-20] MEDS ORDERED: MAG HYDROX/AL HYDROX/SIMETH ES 30 ML SUSPENSION UDCUP PO ONE (19:45)
[2021-02-20 19:54] VITALS: BP 109/62
== END 2021-02-20 21:18 | disposition home or self-care (01) ==
LOC: EMS 19:41
DX: R10.9 Unspecified abdominal pain (principal); F84.0 Autistic disorder; F31.9 Bipolar disorder, unspecified; Z88.8 Allergy status to other drugs, medicaments and biological substances; Z79.899 Other long term (current) drug therapy
CPT/HCPCS: 99283

== ENCOUNTER 2021-02-21 15:30 | Inpatient (IN) | payer MEDICAID, OTHER ==
[~2021-02-21] VITALS: Ht 175.3 cm; Wt 90.3 kg
[2021-02-21] MEDS ORDERED: MAG HYDROX/AL HYDROX/SIMETH ES 30 ML SUSPENSION UDCUP PO ONE (15:45)
[2021-02-21] MEDS ORDERED: ACETAMINOPHEN 500 MG TABLET PO ONE (15:45)
[2021-02-21] MEDS ORDERED: ONDANSETRON HCL 4 MG TABLET PO ONE (15:45)
[2021-02-21] MEDS ORDERED: TOPIRAMATE 100 MG TABLET PO ONE (20:15)
[2021-02-21] MEDS ORDERED: OLANZapine 5 MG TABLET PO ONE (20:15)
[2021-02-21] MEDS ORDERED: TraZODone HCL 50 MG TABLET PO ONE (20:15)
[2021-02-21] MEDS ORDERED: DIVALPROEX SODIUM 250 MG DR TABLET PO ONE (20:15)
[2021-02-21 20:43] LABS: BASOPHILS % (AUTO) 0.6 % (0.0-2.0); EOSINOPHILS % (AUTO) 0.1 % (1.0-6.0); HEMATOCRIT 36.4 % (36-46); HEMOGLOBIN 12.3 g/dL (12.0-16.0); LYMPHOCYTES # (AUTO) 2.1 K/uL (1.0-4.8); LYMPHOCYTES % (AUTO) 28.9 % (22.0-44.0); MEAN CORPUSCULAR HEMOGLOBIN 32.4 pg (26.0-34.0); MEAN CORPUSCULAR HGB CONC 33.8 G/dL (31.0-37.0); MEAN CORPUSCULAR VOLUME 96 fL (80-100); MONOCYTES # (AUTO) 0.4 K/uL (0.1-1.0); MONOCYTES % (AUTO) 6.1 % (2.0-9.0); NEUTROPHILS # (AUTO) 4.6 K/uL (1.8-7.7); NEUTROPHILS % (AUTO) 64.3 % (40.0-70.0); PLATELET COUNT (AUTO) 168 K/uL (150-450); RED BLOOD CELL COUNT(AUTO) 3.79 MIL/uL (4.00-5.20); RED CELL DISTRIBUTION WIDTH 13.3 % (11.5-14.5)
[2021-02-21 20:53] LABS: ANION GAP 12 mmol/L (8-16); CALCIUM, TOTAL 8.3 mg/dL (8.8-10.5); CARBON DIOXIDE 22 mmol/L (22-29); CHLORIDE 109 mmol/L (98-107); GLOMERULAR FILTR. RATE CALC > 60 mL/min (>60); GLUCOSE,RANDOM 139 mg/dL (70-110); POTASSIUM 3.6 mmol/L (3.5-5.1); SODIUM SERUM 143 mmol/L (136-145); UREA NITROGEN, BLOOD 10 mg/dL (7-18)
[2021-02-21 20:58] LABS: ALANINE AMINOTRANSFERASE 15 U/L (12-78); ALBUMIN 3.6 g/dL (3.4-5.0); ALKALINE PHOSPHATASE 79 U/L (46-116); ASPARTATE AMINOTRANSFERASE 10 U/L (15-37); BILIRUBIN,TOTAL 0.2 mg/dL (0.1-1.0); CHOL/HDL RATIO 3.6 (3.9-5.7); CHOLESTEROL 168 mg/dL (131-200); HDL CHOLESTEROL 47 mg/dL (40-60); LDL CHOL (CALC.) 94 mg/dL (0-130); TOTAL PROTEIN, SERUM 7.4 g/dL (6.4-8.2); TRIGLYCERIDES 136 mg/dL (15-150); VALPROIC ACID 48 mcg/mL (50-100)
[2021-02-21] MEDS ORDERED: ZOLPIDEM TARTRATE 10 MG TABLET PO PRN (21:15)
[2021-02-21 21:17] LABS: FREE T4 (FREE THYROXINE) 0.74 ng/dL (0.76-1.46); THYROID STIMULATING HORMONE 3.83 uIU/mL (0.36-3.74)
[2021-02-21 22:01] LABS: COVID AG,FIA SOURCE NASOPHARYNGEAL
[2021-02-22] MEDS: LORazepam 2 MG TABLET PO PRN ×2 (04:18→16:34)
[2021-02-22] MEDS: OLANZapine 5 MG RAPDIS TABLET PO PRN (08:56)
[2021-02-22] MEDS ORDERED: OLANZapine 5 MG TABLET PO ONE (09:00)
[2021-02-22] MEDS ORDERED: GABAPENTIN 100 MG CAPSULE PO ONE (09:00)
[2021-02-22] MEDS ORDERED: DIVALPROEX SODIUM 250 MG DR TABLET PO ONE (09:00)
[2021-02-22] MEDS ORDERED: TOPIRAMATE 100 MG TABLET PO ONE (09:00)
[2021-02-22 14:34] VITALS: BP 112/82
[2021-02-22] MEDS ORDERED: LORazepam 2 MG/ML VIAL IM ONE (16:30)
[2021-02-22] MEDS ORDERED: ChlorproMAZINE HCL 50 MG/2 ML AMP IM ONE (16:30)
[2021-02-22] MEDS ORDERED: DiphenhydrAMINE HCL 50 MG/ML VIAL IM ONE (16:30)
[2021-02-22 20:14] VITALS: BP 121/77
[2021-02-22 20:40] VITALS: BP 112/73
[2021-02-22] MEDS ORDERED: GABAPENTIN 300 MG CAPSULE PO ONE (21:00)
[2021-02-22] MEDS ORDERED: TraZODone HCL 50 MG TABLET PO ONE (21:00)
[2021-02-23 04:21] VITALS: BP 108/86
[2021-02-23] MEDS ORDERED: OMEPRAZOLE 20 MG CAPSULE PO PRN (08:15)
[2021-02-23] MEDS ORDERED: ONDANSETRON HCL 4 MG TABLET PO PRN (08:15)
[2021-02-23] MEDS ORDERED: LOPERAMIDE HCL 2 MG CAPSULE PO PRN (08:15)
[2021-02-23] MEDS ORDERED: CloNIDine HCL 0.1 MG TABLET PO PRN (08:15)
[2021-02-23] MEDS ORDERED: IBUPROFEN 600 MG TABLET PO PRN (08:15)
[2021-02-23] MEDS ORDERED: ALBUTEROL SULFATE HFA 90 MCG/PUFF 8 GM INHALER IH PRN (08:15)
[2021-02-23] MEDS ORDERED: BACITRACIN 28 GM OINTMENT TP PRN (08:15)
[2021-02-23] MEDS ORDERED: BENZOCAINE/MENTHOL LOZENGE PO PRN (08:15)
[2021-02-23] MEDS ORDERED: PETROLATUM,WHITE 28 GM JELLY TP PRN (08:15)
[2021-02-23] MEDS ORDERED: ACETAMINOPHEN 325 MG TABLET PO PRN (08:15)
[2021-02-23] MEDS: OLANZapine 5 MG RAPDIS TABLET PO PRN (08:27)
[2021-02-23] MEDS: LORazepam 2 MG TABLET PO PRN (08:27)
[2021-02-23] MEDS: OMEGA-3/DHA/EPA/FISH OIL 1,000 MG CAPSULE PO SCH (08:29)
[2021-02-23 08:31] VITALS: BP 122/92
[2021-02-23] MEDS ORDERED: ChlorproMAZINE HCL 50 MG/2 ML AMP ONE (13:43)
[2021-02-23] MEDS ORDERED: DiphenhydrAMINE HCL 50 MG/ML VIAL IM ONE (13:45)
[2021-02-23] MEDS ORDERED: LORazepam 2 MG/ML VIAL IM ONE (13:45)
[2021-02-23] MEDS ORDERED: ChlorproMAZINE HCL 50 MG/2 ML AMP IM ONE (13:45)
[2021-02-23 16:18] VITALS: BP 119/85
[2021-02-23] MEDS: TOPIRAMATE 100 MG TABLET PO SCH (17:51)
[2021-02-23] MEDS: GABAPENTIN 300 MG CAPSULE PO SCH (17:51)
[2021-02-23] MEDS: OLANZapine 10 MG RAPDIS TABLET PO SCH (17:52)
[2021-02-23] MEDS: DIVALPROEX SODIUM 250 MG DR TABLET PO SCH (17:52)
[2021-02-23] MEDS: MELATONIN 5 MG TABLET PO SCH (20:45)
[2021-02-23] MEDS: TraZODone HCL 100 MG TABLET PO SCH (20:52)
[2021-02-24 00:50] VITALS: BP 110/76
[2021-02-24] MEDS: GABAPENTIN 300 MG CAPSULE PO SCH ×3 (08:26→16:33)
[2021-02-24] MEDS: DIVALPROEX SODIUM 250 MG DR TABLET PO SCH ×3 (08:26→16:32)
[2021-02-24] MEDS: LORazepam 2 MG TABLET PO PRN ×2 (08:26→18:50)
[2021-02-24] MEDS: OLANZapine 10 MG RAPDIS TABLET PO SCH ×3 (08:26→16:33)
[2021-02-24] MEDS: TOPIRAMATE 100 MG TABLET PO SCH ×2 (08:26→16:32)
[2021-02-24] MEDS: OMEGA-3/DHA/EPA/FISH OIL 1,000 MG CAPSULE PO SCH (08:26)
[2021-02-24 08:34] VITALS: BP 120/78
[2021-02-24 16:10] VITALS: BP 113/86
[2021-02-24] MEDS: TraZODone HCL 100 MG TABLET PO SCH (20:55)
[2021-02-24] MEDS: MELATONIN 5 MG TABLET PO SCH (21:09)
[2021-02-25 01:45] VITALS: BP 110/73
[2021-02-25] MEDS: GABAPENTIN 300 MG CAPSULE PO SCH ×3 (08:21→16:14)
[2021-02-25] MEDS: DIVALPROEX SODIUM 250 MG DR TABLET PO SCH ×3 (08:21→16:14)
[2021-02-25] MEDS: LORazepam 2 MG TABLET PO PRN (08:22)
[2021-02-25] MEDS: OMEGA-3/DHA/EPA/FISH OIL 1,000 MG CAPSULE PO SCH (08:22)
[2021-02-25] MEDS: OLANZapine 10 MG RAPDIS TABLET PO SCH ×3 (08:22→16:14)
[2021-02-25] MEDS: TOPIRAMATE 100 MG TABLET PO SCH ×2 (08:22→16:14)
[2021-02-25 08:23] VITALS: BP 116/68
[2021-02-25] MEDS: OLANZapine 5 MG RAPDIS TABLET PO PRN (09:23)
[2021-02-25 16:32] VITALS: BP 133/62
[2021-02-25] MEDS: MELATONIN 5 MG TABLET PO SCH (20:58)
[2021-02-25] MEDS: TraZODone HCL 100 MG TABLET PO SCH (20:58)
[2021-02-26 04:29] VITALS: BP 129/75
[2021-02-26] MEDS: OLANZapine 5 MG RAPDIS TABLET PO PRN (05:00)
[2021-02-26] MEDS: DOCUSATE SODIUM 100 MG CAPSULE PO PRN (05:00)
[2021-02-26] MEDS: LORazepam 2 MG TABLET PO PRN (05:00)
[2021-02-26] MEDS: DIVALPROEX SODIUM 250 MG DR TABLET PO SCH ×3 (09:23→17:09)
[2021-02-26] MEDS: OLANZapine 10 MG RAPDIS TABLET PO SCH ×3 (09:23→17:09)
[2021-02-26] MEDS: OMEGA-3/DHA/EPA/FISH OIL 1,000 MG CAPSULE PO SCH (09:23)
[2021-02-26] MEDS: TOPIRAMATE 100 MG TABLET PO SCH ×2 (09:23→17:10)
[2021-02-26] MEDS: GABAPENTIN 300 MG CAPSULE PO SCH ×3 (09:26→17:10)
[2021-02-26 16:31] VITALS: BP 116/71
[2021-02-26] MEDS: TraZODone HCL 100 MG TABLET PO SCH (21:18)
[2021-02-26] MEDS: MELATONIN 5 MG TABLET PO SCH (21:18)
[2021-02-27 00:20] VITALS: BP 110/69
[2021-02-27] MEDS: OLANZapine 5 MG RAPDIS TABLET PO PRN (01:00)
[2021-02-27] MEDS: LORazepam 2 MG TABLET PO PRN ×2 (01:00→17:11)
[2021-02-27] MEDS: MAG HYDROX/AL HYDROX/SIMETH ES 30 ML SUSPENSION UDCUP PO PRN (01:13)
[2021-02-27 08:26] VITALS: BP 123/80
[2021-02-27] MEDS: TOPIRAMATE 100 MG TABLET PO SCH ×2 (09:20→16:59)
[2021-02-27] MEDS: OLANZapine 10 MG RAPDIS TABLET PO SCH ×3 (09:20→17:00)
[2021-02-27] MEDS: DIVALPROEX SODIUM 250 MG DR TABLET PO SCH ×3 (09:20→16:59)
[2021-02-27] MEDS: OMEGA-3/DHA/EPA/FISH OIL 1,000 MG CAPSULE PO SCH (09:20)
[2021-02-27] MEDS: GABAPENTIN 300 MG CAPSULE PO SCH ×3 (09:21→16:59)
[2021-02-27 16:14] VITALS: BP 128/73
[2021-02-27] MEDS: MELATONIN 5 MG TABLET PO SCH (21:16)
[2021-02-27] MEDS: TraZODone HCL 100 MG TABLET PO SCH (21:16)
[2021-02-28 01:33] VITALS: BP 122/70
[2021-02-28 08:39] VITALS: BP 129/75
[2021-02-28] MEDS: TOPIRAMATE 100 MG TABLET PO SCH ×2 (09:00→17:06)
[2021-02-28] MEDS: OLANZapine 10 MG RAPDIS TABLET PO SCH ×3 (09:00→17:05)
[2021-02-28] MEDS: OMEGA-3/DHA/EPA/FISH OIL 1,000 MG CAPSULE PO SCH (09:00)
[2021-02-28] MEDS: DIVALPROEX SODIUM 250 MG DR TABLET PO SCH ×3 (09:00→17:06)
[2021-02-28] MEDS: GABAPENTIN 300 MG CAPSULE PO SCH ×3 (09:00→17:06)
[2021-02-28] MEDS: LORazepam 2 MG TABLET PO PRN (16:05)
[2021-02-28 16:11] VITALS: BP 121/68
[2021-02-28] MEDS: MELATONIN 5 MG TABLET PO SCH (20:07)
[2021-02-28] MEDS: TraZODone HCL 100 MG TABLET PO SCH (20:08)
[2021-03-01 07:08] VITALS: BP 114/76
[2021-03-01] MEDS: OMEGA-3/DHA/EPA/FISH OIL 1,000 MG CAPSULE PO SCH (09:24)
[2021-03-01] MEDS: DIVALPROEX SODIUM 250 MG DR TABLET PO SCH ×3 (09:24→16:07)
[2021-03-01] MEDS: GABAPENTIN 300 MG CAPSULE PO SCH ×3 (09:24→16:08)
[2021-03-01] MEDS: TOPIRAMATE 100 MG TABLET PO SCH ×2 (09:24→16:07)
[2021-03-01] MEDS: LORazepam 2 MG TABLET PO PRN (09:25)
[2021-03-01] MEDS: OLANZapine 10 MG RAPDIS TABLET PO SCH ×3 (09:25→16:07)
[2021-03-01] MEDS ORDERED: GABAPENTIN 300 MG CAPSULE PO PRN (14:45)
[2021-03-01 16:10] VITALS: BP 107/71
[2021-03-01] MEDS: TraZODone HCL 100 MG TABLET PO SCH (20:31)
[2021-03-01] MEDS: MELATONIN 5 MG TABLET PO SCH (20:31)
[2021-03-02 07:05] VITALS: BP 110/73
[2021-03-02 07:40] LABS: BASOPHILS % (AUTO) 0.6 % (0.0-2.0); EOSINOPHILS % (AUTO) 0 % (1.0-6.0); HEMATOCRIT 38.6 % (36-46); HEMOGLOBIN 13.2 g/dL (12.0-16.0); LYMPHOCYTES # (AUTO) 2.1 K/uL (1.0-4.8); MEAN CORPUSCULAR HEMOGLOBIN 32.3 pg (26.0-34.0); MEAN CORPUSCULAR HGB CONC 34.1 G/dL (31.0-37.0); MEAN CORPUSCULAR VOLUME 95 fL (80-100); MONOCYTES # (AUTO) 0.5 K/uL (0.1-1.0); MONOCYTES % (AUTO) 8.1 % (2.0-9.0); NEUTROPHILS # (AUTO) 3.5 K/uL (1.8-7.7); NEUTROPHILS % (AUTO) 57.3 % (40.0-70.0); PLATELET COUNT (AUTO) 177 K/uL (150-450); RED BLOOD CELL COUNT(AUTO) 4.08 MIL/uL (4.00-5.20); RED CELL DISTRIBUTION WIDTH 12.9 % (11.5-14.5)
[2021-03-02] MEDS: TOPIRAMATE 100 MG TABLET PO SCH ×2 (08:07→16:18)
[2021-03-02] MEDS: GABAPENTIN 300 MG CAPSULE PO SCH ×3 (08:07→16:17)
[2021-03-02] MEDS: OMEGA-3/DHA/EPA/FISH OIL 1,000 MG CAPSULE PO SCH (08:07)
[2021-03-02] MEDS: DIVALPROEX SODIUM 250 MG DR TABLET PO SCH ×3 (08:07→16:18)
[2021-03-02] MEDS: OLANZapine 10 MG RAPDIS TABLET PO SCH ×3 (08:08→16:18)
[2021-03-02] MEDS ORDERED: CloZAPine 25 MG TABLET PO SCH (09:00)
[2021-03-02 10:11] VITALS: BP 102/67
[2021-03-02 16:36] VITALS: BP 101/64
[2021-03-02] MEDS: MELATONIN 5 MG TABLET PO SCH (20:25)
[2021-03-02] MEDS: TraZODone HCL 100 MG TABLET PO SCH (20:25)
[2021-03-03 00:16] VITALS: BP 110/61
[2021-03-03] MEDS: DOCUSATE SODIUM 100 MG CAPSULE PO PRN (03:56)
[2021-03-03] MEDS: MAGNESIUM HYDROXIDE SUSPENSION 30 ML UDCUP PO PRN (05:08)
[2021-03-03 06:02] VITALS: BP 100/60
[2021-03-03] MEDS: DIVALPROEX SODIUM 250 MG DR TABLET PO SCH ×3 (08:11→16:15)
[2021-03-03] MEDS: GABAPENTIN 300 MG CAPSULE PO SCH ×3 (08:12→16:16)
[2021-03-03] MEDS: OMEGA-3/DHA/EPA/FISH OIL 1,000 MG CAPSULE PO SCH (08:12)
[2021-03-03] MEDS: OLANZapine 10 MG RAPDIS TABLET PO SCH ×3 (08:13→16:16)
[2021-03-03] MEDS: TOPIRAMATE 100 MG TABLET PO SCH ×2 (08:14→16:16)
[2021-03-03 08:22] VITALS: BP 125/68
[2021-03-03 08:30] VITALS: BP 125/68
[2021-03-03] MEDS ORDERED: CloZAPine 25 MG TABLET PO SCH ×2 (09:00→21:00)
[2021-03-03] MEDS: OLANZapine 5 MG RAPDIS TABLET PO PRN (15:56)
[2021-03-03 16:05] LABS: GLUCOMETER DEV NAME(LOC) POC.BV
[2021-03-03 16:13] VITALS: BP 142/81
[2021-03-03] MEDS ORDERED: DIVALPROEX SODIUM 250 MG DR TABLET PO SCH (17:00)
[2021-03-03] MEDS: DICLOFENAC SODIUM 1% 100 GM GEL [2GM] TP SCH (18:51)
[2021-03-03] MEDS: TraZODone HCL 100 MG TABLET PO SCH (20:06)
[2021-03-03] MEDS: MELATONIN 5 MG TABLET PO SCH (20:06)
[2021-03-03] MEDS: DIVALPROEX SODIUM 250 MG ER TABLET PO SCH (20:07)
[2021-03-04 00:41] VITALS: BP 132/72
[2021-03-04 08:28] VITALS: BP 120/79
[2021-03-04] MEDS: OLANZapine 10 MG RAPDIS TABLET PO SCH ×2 (08:42→16:06)
[2021-03-04] MEDS: OMEGA-3/DHA/EPA/FISH OIL 1,000 MG CAPSULE PO SCH (08:42)
[2021-03-04] MEDS: TOPIRAMATE 100 MG TABLET PO SCH ×2 (08:42→16:07)
[2021-03-04] MEDS: DIVALPROEX SODIUM 500 MG DR TABLET PO SCH ×2 (08:42→16:07)
[2021-03-04] MEDS: DICLOFENAC SODIUM 1% 100 GM GEL [2GM] TP SCH ×3 (08:44→16:08)
[2021-03-04] MEDS: GABAPENTIN 300 MG CAPSULE PO SCH ×3 (08:44→16:06)
[2021-03-04] MEDS ORDERED: CloZAPine 25 MG TABLET PO SCH ×2 (09:00→21:00)
[2021-03-04 09:45] VITALS: BP 120/79
[2021-03-04] MEDS: OLANZapine 5 MG RAPDIS TABLET PO PRN (16:06)
[2021-03-04 16:07] VITALS: BP 138/78
[2021-03-04] MEDS: DIVALPROEX SODIUM 250 MG ER TABLET PO SCH (21:15)
[2021-03-04] MEDS: TraZODone HCL 100 MG TABLET PO SCH (21:15)
[2021-03-04] MEDS: MELATONIN 5 MG TABLET PO SCH (21:16)
[2021-03-05 00:49] VITALS: BP 126/71
[2021-03-05] MEDS: GABAPENTIN 300 MG CAPSULE PO SCH ×3 (08:19→16:31)
[2021-03-05] MEDS: OLANZapine 10 MG RAPDIS TABLET PO SCH ×2 (08:19→16:31)
[2021-03-05] MEDS: CloZAPine 25 MG TABLET PO SCH ×2 (08:19→20:08)
[2021-03-05] MEDS: DIVALPROEX SODIUM 500 MG DR TABLET PO SCH ×2 (08:19→16:31)
[2021-03-05] MEDS: OMEGA-3/DHA/EPA/FISH OIL 1,000 MG CAPSULE PO SCH (08:19)
[2021-03-05] MEDS: TOPIRAMATE 100 MG TABLET PO SCH ×2 (08:20→16:31)
[2021-03-05] MEDS: DICLOFENAC SODIUM 1% 100 GM GEL [2GM] TP SCH ×3 (08:20→16:37)
[2021-03-05 08:23] VITALS: BP 101/55
[2021-03-05 16:18] VITALS: BP 112/74
[2021-03-05] MEDS: TraZODone HCL 100 MG TABLET PO SCH (20:07)
[2021-03-05] MEDS: DIVALPROEX SODIUM 250 MG ER TABLET PO SCH (20:08)
[2021-03-05] MEDS: MELATONIN 5 MG TABLET PO SCH (20:08)
[2021-03-06 01:01] VITALS: BP 110/66
[2021-03-06] MEDS: OMEGA-3/DHA/EPA/FISH OIL 1,000 MG CAPSULE PO SCH (08:19)
[2021-03-06] MEDS: DIVALPROEX SODIUM 500 MG DR TABLET PO SCH ×2 (08:19→17:10)
[2021-03-06] MEDS: TOPIRAMATE 100 MG TABLET PO SCH ×2 (08:19→17:10)
[2021-03-06] MEDS: GABAPENTIN 300 MG CAPSULE PO SCH ×3 (08:19→17:10)
[2021-03-06] MEDS: OLANZapine 10 MG RAPDIS TABLET PO SCH ×2 (08:20→17:10)
[2021-03-06] MEDS: DICLOFENAC SODIUM 1% 100 GM GEL [2GM] TP SCH ×2 (08:22→12:16)
[2021-03-06] MEDS: CloZAPine 25 MG TABLET PO SCH ×2 (08:22→20:18)
[2021-03-06 17:49] VITALS: BP 95/62
[2021-03-06] MEDS: MELATONIN 5 MG TABLET PO SCH (20:19)
[2021-03-06] MEDS: TraZODone HCL 100 MG TABLET PO SCH (20:19)
[2021-03-06] MEDS: DIVALPROEX SODIUM 250 MG ER TABLET PO SCH (20:19)
[2021-03-07 06:10] VITALS: BP 119/69
[2021-03-07 07:30] LABS: COVID AG,FIA SOURCE NASOPHARYNGEAL
[2021-03-07 08:09] VITALS: BP 112/62
[2021-03-07] MEDS ORDERED: CloZAPine 25 MG TABLET PO SCH (09:00)
[2021-03-07] MEDS: GABAPENTIN 300 MG CAPSULE PO SCH ×3 (09:07→16:40)
[2021-03-07] MEDS: DIVALPROEX SODIUM 500 MG DR TABLET PO SCH ×2 (09:07→16:40)
[2021-03-07] MEDS: TOPIRAMATE 100 MG TABLET PO SCH ×2 (09:07→16:40)
[2021-03-07] MEDS: OMEGA-3/DHA/EPA/FISH OIL 1,000 MG CAPSULE PO SCH (09:07)
[2021-03-07] MEDS: OLANZapine 10 MG RAPDIS TABLET PO SCH ×2 (09:08→16:40)
[2021-03-07] MEDS ORDERED: DICLOFENAC SODIUM 1% 100 GM GEL [2GM] TP PRN (15:00)
[2021-03-07 16:33] VITALS: BP 139/82
[2021-03-07] MEDS: MELATONIN 5 MG TABLET PO SCH (20:40)
[2021-03-07] MEDS: DIVALPROEX SODIUM 250 MG ER TABLET PO SCH (20:40)
[2021-03-07] MEDS: BENZTROPINE MESYLATE 1 MG TABLET PO SCH (20:40)
[2021-03-07] MEDS: TraZODone HCL 100 MG TABLET PO SCH (20:40)
[2021-03-07] MEDS ORDERED: CloZAPine 100 MG TABLET PO SCH (21:00)
[2021-03-08 05:28] VITALS: BP 96/60
[2021-03-08 08:06] VITALS: BP 116/69
[2021-03-08] MEDS: GABAPENTIN 300 MG CAPSULE PO SCH ×3 (08:53→15:58)
[2021-03-08] MEDS: OMEGA-3/DHA/EPA/FISH OIL 1,000 MG CAPSULE PO SCH (08:53)
[2021-03-08] MEDS: DIVALPROEX SODIUM 500 MG DR TABLET PO SCH ×2 (08:54→15:58)
[2021-03-08] MEDS: TOPIRAMATE 100 MG TABLET PO SCH ×2 (08:54→15:58)
[2021-03-08] MEDS: OLANZapine 10 MG RAPDIS TABLET PO SCH (08:55)
[2021-03-08] MEDS ORDERED: CloZAPine 25 MG TABLET PO SCH (09:00)
[2021-03-08] MEDS: OLANZapine 5 MG RAPDIS TABLET PO PRN (15:42)
[2021-03-08 16:12] VITALS: BP 118/74
[2021-03-08] MEDS: BENZTROPINE MESYLATE 1 MG TABLET PO SCH (20:31)
[2021-03-08] MEDS: MELATONIN 5 MG TABLET PO SCH (20:31)
[2021-03-08] MEDS: DIVALPROEX SODIUM 250 MG ER TABLET PO SCH (20:32)
[2021-03-08] MEDS: TraZODone HCL 100 MG TABLET PO SCH (20:32)
[2021-03-08] MEDS ORDERED: OLANZapine 5 MG RAPDIS TABLET PO SCH (21:00)
[2021-03-08] MEDS ORDERED: CloZAPine 100 MG TABLET PO SCH (21:00)
[2021-03-09 06:09] VITALS: BP 100/61
[2021-03-09 08:23] VITALS: BP 111/66
[2021-03-09] MEDS: OMEGA-3/DHA/EPA/FISH OIL 1,000 MG CAPSULE PO SCH (08:57)
[2021-03-09] MEDS: DIVALPROEX SODIUM 500 MG DR TABLET PO SCH ×2 (08:58→16:30)
[2021-03-09] MEDS: GABAPENTIN 300 MG CAPSULE PO SCH ×3 (08:59→16:30)
[2021-03-09] MEDS: TOPIRAMATE 100 MG TABLET PO SCH ×2 (08:59→16:30)
[2021-03-09] MEDS ORDERED: CloZAPine 25 MG TABLET PO SCH (09:00)
[2021-03-09] MEDS ORDERED: TraZODone HCL 100 MG TABLET PO PRN (15:45)
[2021-03-09 16:06] VITALS: BP 118/79
[2021-03-09] MEDS: BENZTROPINE MESYLATE 1 MG TABLET PO SCH (20:07)
[2021-03-09] MEDS: DIVALPROEX SODIUM 250 MG ER TABLET PO SCH (20:07)
[2021-03-09] MEDS: CloZAPine 100 MG TABLET PO SCH (20:08)
[2021-03-09] MEDS: MELATONIN 5 MG TABLET PO SCH (20:09)
[2021-03-09] MEDS ORDERED: CloZAPine 100 MG TABLET PO SCH (21:00)
[2021-03-10 01:02] VITALS: BP 113/73
[2021-03-10] MEDS: GABAPENTIN 300 MG CAPSULE PO SCH ×3 (08:14→17:14)
[2021-03-10] MEDS: OMEGA-3/DHA/EPA/FISH OIL 1,000 MG CAPSULE PO SCH (08:15)
[2021-03-10] MEDS: DIVALPROEX SODIUM 500 MG DR TABLET PO SCH ×2 (08:15→17:13)
[2021-03-10] MEDS: TOPIRAMATE 100 MG TABLET PO SCH ×2 (08:15→17:13)
[2021-03-10 08:27] VITALS: BP 118/77
[2021-03-10] MEDS: OLANZapine 5 MG RAPDIS TABLET PO PRN (08:50)
[2021-03-10] MEDS ORDERED: CloZAPine 100 MG TABLET PO SCH (09:00)
[2021-03-10 16:09] VITALS: BP 116/71
[2021-03-10] MEDS: MELATONIN 5 MG TABLET PO SCH (20:47)
[2021-03-10] MEDS: BENZTROPINE MESYLATE 1 MG TABLET PO SCH (20:47)
[2021-03-10] MEDS: CloZAPine 100 MG TABLET PO SCH (20:48)
[2021-03-10] MEDS: DIVALPROEX SODIUM 250 MG ER TABLET PO SCH (20:48)
[2021-03-11 01:21] VITALS: BP 110/76
[2021-03-11 07:23] LABS: BASOPHILS % (AUTO) 0.4 % (0.0-2.0); EOSINOPHILS % (AUTO) 0 % (1.0-6.0); HEMATOCRIT 39.5 % (36-46); LYMPHOCYTES # (AUTO) 1.5 K/uL (1.0-4.8); LYMPHOCYTES % (AUTO) 31.7 % (22.0-44.0); MEAN CORPUSCULAR HEMOGLOBIN 32.6 pg (26.0-34.0); MEAN CORPUSCULAR HGB CONC 35.3 G/dL (31.0-37.0); MEAN CORPUSCULAR VOLUME 92 fL (80-100); MONOCYTES # (AUTO) 0.3 K/uL (0.1-1.0); MONOCYTES % (AUTO) 7.2 % (2.0-9.0); NEUTROPHILS # (AUTO) 2.9 K/uL (1.8-7.7); NEUTROPHILS % (AUTO) 60.7 % (40.0-70.0); PLATELET COUNT (AUTO) 150 K/uL (150-450); RED BLOOD CELL COUNT(AUTO) 4.29 MIL/uL (4.00-5.20); RED CELL DISTRIBUTION WIDTH 12.7 % (11.5-14.5)
[2021-03-11] MEDS: DIVALPROEX SODIUM 500 MG DR TABLET PO SCH (07:53)
[2021-03-11] MEDS: OMEGA-3/DHA/EPA/FISH OIL 1,000 MG CAPSULE PO SCH (07:54)
[2021-03-11] MEDS: GABAPENTIN 300 MG CAPSULE PO SCH ×3 (07:54→16:10)
[2021-03-11] MEDS: TOPIRAMATE 100 MG TABLET PO SCH ×2 (07:54→16:09)
[2021-03-11 08:14] VITALS: BP 110/63
[2021-03-11] MEDS ORDERED: TUBERCULIN, PURIFIED PROTEIN DERIVATIVE 5 TU/0.1 ML SYRINGE ID ONE ×2 (13:45)
[2021-03-11] MEDS: GLYCOPYRROLATE 1 MG TABLET PO SCH ×2 (16:10→20:01)
[2021-03-11 17:10] VITALS: BP 106/73
[2021-03-11] MEDS: CloZAPine 100 MG TABLET PO SCH (20:00)
[2021-03-11] MEDS: MELATONIN 5 MG TABLET PO SCH (20:00)
[2021-03-11] MEDS: DIVALPROEX SODIUM 250 MG ER TABLET PO SCH (20:01)
[2021-03-12 04:52] VITALS: BP 112/79
[2021-03-12 08:14] VITALS: BP 115/66
[2021-03-12] MEDS: GLYCOPYRROLATE 1 MG TABLET PO SCH ×5 (08:35→22:25)
[2021-03-12] MEDS: TOPIRAMATE 100 MG TABLET PO SCH ×2 (08:35→16:36)
[2021-03-12] MEDS: OMEGA-3/DHA/EPA/FISH OIL 1,000 MG CAPSULE PO SCH (08:35)
[2021-03-12] MEDS: GABAPENTIN 300 MG CAPSULE PO SCH ×3 (08:40→16:36)
[2021-03-12] MEDS ORDERED: CloZAPine 25 MG TABLET PO SCH (09:00)
[2021-03-12 16:10] VITALS: BP 145/86
[2021-03-12] MEDS: CloZAPine 100 MG TABLET PO SCH ×2 (20:25→22:26)
[2021-03-12] MEDS ORDERED: CloZAPine 100 MG TABLET PO SCH (21:00)
[2021-03-13 00:45] VITALS: BP 132/76
[2021-03-13 08:24] VITALS: BP 133/82
[2021-03-13] MEDS: GABAPENTIN 300 MG CAPSULE PO SCH ×3 (08:30→16:18)
[2021-03-13] MEDS: GLYCOPYRROLATE 1 MG TABLET PO SCH ×4 (08:30→20:14)
[2021-03-13] MEDS: OMEGA-3/DHA/EPA/FISH OIL 1,000 MG CAPSULE PO SCH (08:31)
[2021-03-13] MEDS: TOPIRAMATE 100 MG TABLET PO SCH ×2 (08:31→16:18)
[2021-03-13] MEDS ORDERED: CloZAPine 25 MG TABLET PO SCH (09:00)
[2021-03-13 16:41] VITALS: BP 95/47
[2021-03-13 17:15] VITALS: BP 127/81
[2021-03-13] MEDS: CloZAPine 100 MG TABLET PO SCH (20:15)
[2021-03-13] MEDS ORDERED: CloZAPine 100 MG TABLET PO SCH (21:00)
[2021-03-14 00:15] VITALS: BP 115/86
[2021-03-14 07:18] LABS: COVID AG,FIA SOURCE NASOPHARYNGEAL
[2021-03-14] MEDS ORDERED: CloZAPine 100 MG TABLET PO SCH ×2 (09:00→21:00)
[2021-03-14] MEDS: GLYCOPYRROLATE 1 MG TABLET PO SCH ×4 (09:01→20:02)
[2021-03-14] MEDS: TOPIRAMATE 100 MG TABLET PO SCH ×2 (09:01→16:38)
[2021-03-14] MEDS: GABAPENTIN 300 MG CAPSULE PO SCH ×3 (09:01→16:38)
[2021-03-14] MEDS: OMEGA-3/DHA/EPA/FISH OIL 1,000 MG CAPSULE PO SCH (09:02)
[2021-03-14] MEDS: OLANZapine 5 MG RAPDIS TABLET PO PRN (09:17)
[2021-03-14 09:22] VITALS: BP 131/71
[2021-03-14 16:02] VITALS: BP 140/78
[2021-03-14] MEDS: CloZAPine 100 MG TABLET PO SCH (20:02)
[2021-03-15 00:11] VITALS: BP 132/73
[2021-03-15 08:23] VITALS: BP 117/74
[2021-03-15] MEDS: GLYCOPYRROLATE 1 MG TABLET PO SCH ×4 (08:34→20:07)
[2021-03-15] MEDS: GABAPENTIN 300 MG CAPSULE PO SCH ×3 (08:35→17:03)
[2021-03-15] MEDS: OMEGA-3/DHA/EPA/FISH OIL 1,000 MG CAPSULE PO SCH (08:35)
[2021-03-15] MEDS: TOPIRAMATE 100 MG TABLET PO SCH ×2 (08:35→17:02)
[2021-03-15 16:19] VITALS: BP 110/66
[2021-03-15] MEDS: CloZAPine 100 MG TABLET PO SCH (20:07)
[2021-03-16 03:45] VITALS: BP 102/63
[2021-03-16] MEDS: MAGNESIUM HYDROXIDE SUSPENSION 30 ML UDCUP PO PRN (07:04)
[2021-03-16 07:42] LABS: BASOPHILS % (AUTO) 0.4 % (0.0-2.0); EOSINOPHILS % (AUTO) 0.1 % (1.0-6.0); HEMATOCRIT 41.4 % (36-46); HEMOGLOBIN 14.2 g/dL (12.0-16.0); LYMPHOCYTES # (AUTO) 1.1 K/uL (1.0-4.8); LYMPHOCYTES % (AUTO) 19.4 % (22.0-44.0); MEAN CORPUSCULAR HEMOGLOBIN 31.5 pg (26.0-34.0); MEAN CORPUSCULAR HGB CONC 34.2 G/dL (31.0-37.0); MEAN CORPUSCULAR VOLUME 92 fL (80-100); MONOCYTES # (AUTO) 0.8 K/uL (0.1-1.0); MONOCYTES % (AUTO) 14.1 % (2.0-9.0); NEUTROPHILS # (AUTO) 3.7 K/uL (1.8-7.7); PLATELET COUNT (AUTO) 124 K/uL (150-450); RED BLOOD CELL COUNT(AUTO) 4.49 MIL/uL (4.00-5.20); RED CELL DISTRIBUTION WIDTH 13.2 % (11.5-14.5)
[2021-03-16] MEDS: DIVALPROEX SODIUM 500 MG ER TABLET PO SCH ×3 (08:00→16:10)
[2021-03-16] MEDS: TOPIRAMATE 100 MG TABLET PO SCH ×2 (08:00→16:10)
[2021-03-16] MEDS: OMEGA-3/DHA/EPA/FISH OIL 1,000 MG CAPSULE PO SCH (08:00)
[2021-03-16] MEDS: GABAPENTIN 300 MG CAPSULE PO SCH ×3 (08:00→16:10)
[2021-03-16] MEDS: OLANZapine 5 MG RAPDIS TABLET PO SCH ×3 (08:01→16:10)
[2021-03-16 08:15] VITALS: BP 143/65
[2021-03-16] MEDS: MAG HYDROX/AL HYDROX/SIMETH ES 30 ML SUSPENSION UDCUP PO PRN (11:42)
[2021-03-16] MEDS: DOCUSATE SODIUM 100 MG CAPSULE PO PRN (12:23)
[2021-03-16 16:09] VITALS: BP 112/66
[2021-03-16] MEDS ORDERED: OLAN5TAB94 PO (21:25)
[2021-03-16] MEDS ORDERED: GLYC1TAB27 PO (21:25)
[2021-03-16] MEDS ORDERED: DIVA-80 PO (21:25)
[2021-03-16] MEDS ORDERED: GABA-1181 PO (21:25)
[2021-03-16] MEDS ORDERED: OMEG-135 PO (21:25)
[2021-03-16] MEDS ORDERED: TOPI100T37 PO (21:25)
[2021-03-16] MEDS ORDERED: MELA5TAB40 PO (21:25)
[2021-03-17 02:45] VITALS: BP 113/71
[2021-03-17 08:20] VITALS: BP 131/76
[2021-03-17] MEDS: OMEGA-3/DHA/EPA/FISH OIL 1,000 MG CAPSULE PO SCH (09:37)
[2021-03-17] MEDS: DIVALPROEX SODIUM 500 MG ER TABLET PO SCH ×3 (09:37→16:11)
[2021-03-17] MEDS: OLANZapine 5 MG RAPDIS TABLET PO SCH ×3 (09:38→16:12)
[2021-03-17] MEDS: GABAPENTIN 300 MG CAPSULE PO SCH ×3 (09:38→16:11)
[2021-03-17] MEDS: GLYCOPYRROLATE 1 MG TABLET PO SCH ×3 (09:38→17:52)
[2021-03-17] MEDS: TOPIRAMATE 100 MG TABLET PO SCH ×2 (09:38→16:12)
[2021-03-17 16:08] VITALS: BP 112/78
[2021-03-18 00:54] VITALS: BP 116/71
[2021-03-18] MEDS: OLANZapine 5 MG RAPDIS TABLET PO SCH ×3 (08:37→16:42)
[2021-03-18] MEDS: GABAPENTIN 300 MG CAPSULE PO SCH ×3 (08:37→16:28)
[2021-03-18] MEDS: DIVALPROEX SODIUM 500 MG ER TABLET PO SCH ×3 (08:37→16:28)
[2021-03-18] MEDS: TOPIRAMATE 100 MG TABLET PO SCH ×2 (08:37→16:28)
[2021-03-18] MEDS: OMEGA-3/DHA/EPA/FISH OIL 1,000 MG CAPSULE PO SCH (08:37)
[2021-03-18] MEDS: GLYCOPYRROLATE 1 MG TABLET PO SCH ×3 (08:37→16:28)
[2021-03-18 08:43] VITALS: BP 118/79
[2021-03-18 16:07] VITALS: BP 117/77
[2021-03-19 00:51] VITALS: BP 114/72
[2021-03-19 08:12] VITALS: BP 122/79
[2021-03-19] MEDS: GLYCOPYRROLATE 1 MG TABLET PO SCH ×3 (08:33→16:22)
[2021-03-19] MEDS: TOPIRAMATE 100 MG TABLET PO SCH ×2 (08:33→16:22)
[2021-03-19] MEDS: OLANZapine 5 MG RAPDIS TABLET PO SCH ×3 (08:33→16:22)
[2021-03-19] MEDS: DIVALPROEX SODIUM 500 MG ER TABLET PO SCH ×3 (08:34→16:22)
[2021-03-19] MEDS: OMEGA-3/DHA/EPA/FISH OIL 1,000 MG CAPSULE PO SCH (08:34)
[2021-03-19] MEDS: GABAPENTIN 300 MG CAPSULE PO SCH ×3 (08:34→16:22)
[2021-03-19 16:06] VITALS: BP 127/80
[2021-03-20 00:05] VITALS: BP 100/57
[2021-03-20] MEDS: GABAPENTIN 300 MG CAPSULE PO SCH ×3 (08:07→16:14)
[2021-03-20] MEDS: DIVALPROEX SODIUM 500 MG ER TABLET PO SCH ×3 (08:07→16:15)
[2021-03-20] MEDS: OLANZapine 5 MG RAPDIS TABLET PO SCH ×3 (08:07→16:14)
[2021-03-20] MEDS: TOPIRAMATE 100 MG TABLET PO SCH ×2 (08:07→16:14)
[2021-03-20] MEDS: GLYCOPYRROLATE 1 MG TABLET PO SCH ×3 (08:07→16:15)
[2021-03-20] MEDS: OMEGA-3/DHA/EPA/FISH OIL 1,000 MG CAPSULE PO SCH (08:14)
[2021-03-20 08:30] VITALS: BP 120/85
[2021-03-20 17:07] VITALS: BP 118/70
[2021-03-21 05:57] VITALS: BP 122/86
[2021-03-21 08:05] VITALS: BP 141/73
[2021-03-21] MEDS: GABAPENTIN 300 MG CAPSULE PO SCH ×3 (08:45→17:28)
[2021-03-21] MEDS: TOPIRAMATE 100 MG TABLET PO SCH ×2 (08:45→17:28)
[2021-03-21] MEDS: GLYCOPYRROLATE 1 MG TABLET PO SCH ×3 (08:45→17:28)
[2021-03-21] MEDS: DIVALPROEX SODIUM 500 MG ER TABLET PO SCH ×3 (08:45→17:28)
[2021-03-21] MEDS: OMEGA-3/DHA/EPA/FISH OIL 1,000 MG CAPSULE PO SCH (08:46)
[2021-03-21] MEDS: OLANZapine 5 MG RAPDIS TABLET PO SCH ×3 (08:46→17:28)
[2021-03-21 15:01] LABS: GLUCOMETER DEV NAME(LOC) POC.BV
[2021-03-21 16:07] VITALS: BP 133/81
[2021-03-22 04:00] VITALS: BP 128/72
[2021-03-22 08:14] VITALS: BP 100/61
[2021-03-22] MEDS: GLYCOPYRROLATE 1 MG TABLET PO SCH ×3 (09:30→16:53)
[2021-03-22] MEDS: TOPIRAMATE 100 MG TABLET PO SCH ×2 (09:31→16:50)
[2021-03-22] MEDS: GABAPENTIN 300 MG CAPSULE PO SCH ×3 (09:31→16:50)
[2021-03-22] MEDS: DIVALPROEX SODIUM 500 MG ER TABLET PO SCH ×3 (09:31→16:50)
[2021-03-22] MEDS: OMEGA-3/DHA/EPA/FISH OIL 1,000 MG CAPSULE PO SCH (09:31)
[2021-03-22] MEDS: OLANZapine 5 MG RAPDIS TABLET PO SCH ×3 (09:32→16:52)
[2021-03-22 16:41] VITALS: BP 105/74
[2021-03-23 01:08] VITALS: BP 110/71
[2021-03-23 08:14] VITALS: BP 120/72
[2021-03-23] MEDS: DIVALPROEX SODIUM 500 MG ER TABLET PO SCH ×3 (10:04→16:33)
[2021-03-23] MEDS: GLYCOPYRROLATE 1 MG TABLET PO SCH ×3 (10:04→16:33)
[2021-03-23] MEDS: OMEGA-3/DHA/EPA/FISH OIL 1,000 MG CAPSULE PO SCH (10:04)
[2021-03-23] MEDS: TOPIRAMATE 100 MG TABLET PO SCH ×2 (10:04→16:33)
[2021-03-23] MEDS: GABAPENTIN 300 MG CAPSULE PO SCH ×3 (10:05→16:33)
[2021-03-23] MEDS: OLANZapine 5 MG RAPDIS TABLET PO SCH ×3 (10:05→16:33)
[2021-03-23 16:18] VITALS: BP 112/69
[2021-03-24 00:16] VITALS: BP 116/64
[2021-03-24 08:07] VITALS: BP 111/76
[2021-03-24] MEDS: GABAPENTIN 300 MG CAPSULE PO SCH (08:13)
[2021-03-24] MEDS: TOPIRAMATE 100 MG TABLET PO SCH (08:14)
[2021-03-24] MEDS: DIVALPROEX SODIUM 500 MG ER TABLET PO SCH (08:14)
[2021-03-24] MEDS: OMEGA-3/DHA/EPA/FISH OIL 1,000 MG CAPSULE PO SCH (08:14)
[2021-03-24] MEDS: OLANZapine 5 MG RAPDIS TABLET PO SCH (08:14)
[2021-03-24] MEDS: GLYCOPYRROLATE 1 MG TABLET PO SCH (08:14)
== END 2021-03-24 11:30 | disposition home or self-care (01) | DRG 750 ==
LOC: EMS 15:35 → 3EC 02-22 13:47 → B3A 02-22 20:53
PROVIDERS: ADMIT Psychiatry & Neurology Psychiatry; ATTEND Psychiatry & Neurology Psychiatry
DX: F25.0 Schizoaffective disorder, bipolar type (principal); F72 Severe intellectual disabilities; R45.851 Suicidal ideations; E03.9 Hypothyroidism, unspecified; Z20.822 Contact with and (suspected) exposure to COVID-19; E73.9 Lactose intolerance, unspecified; F41.9 Anxiety disorder, unspecified; G47.00 Insomnia, unspecified; Z55.9 Problems related to education and literacy, unspecified; Z59.9 Problem related to housing and economic circumstances, unspecified; Z63.9 Problem related to primary support group, unspecified; Z65.3 Problems related to other legal circumstances; Z79.899 Other long term (current) drug therapy; Z88.8 Allergy status to other drugs, medicaments and biological substances
CPT/HCPCS: 80053; 80061; 80159; 80164; 84439; 84443; 84703; 85025; 87081; 99285; G0480; J1200; J2060; J3230; Q0162; Q9967

== ENCOUNTER 2021-03-03 08:58 | Emergency (ER) | payer MEDICAID, OTHER ==
[~2021-03-03] VITALS: Ht 175.3 cm; Wt 90.9 kg
[2021-03-03] MEDS ORDERED: ACETAMINOPHEN 500 MG TABLET PO ONE (09:15)
[2021-03-03 11:32] VITALS: BP 128/68
== END 2021-03-03 13:55 | disposition home or self-care (01) ==
LOC: EMS 09:05
DX: S52.122A Displaced fracture of head of left radius, initial encounter for closed fracture (principal); F99 Mental disorder, not otherwise specified; F31.9 Bipolar disorder, unspecified; W18.39XA Other fall on same level, initial encounter; Y93.89 Activity, other specified; Y92.89 Other specified places as the place of occurrence of the external cause; Y99.8 Other external cause status
CPT/HCPCS: 29105; 70450; 99284

== ENCOUNTER 2021-08-31 16:18 | Inpatient (IN) | payer MEDICAID, OTHER ==
[~2021-08-31] VITALS: Ht 165.1 cm; Wt 73.0 kg
[~2021-08-31 16:18] MED LIST changes: -DIVA-112 PO; +DIVA-80 PO; +GLYC1TAB27 PO; -OLAN10TA26 PO; +OLAN5TAB94 PO; +OMEG-108 PO; -OMEG-135 PO; -TRAZ-257 PO
[2021-08-31 17:43] LABS: BASOPHILS % (AUTO) 0.8 % (0.0-2.0); EOSINOPHILS % (AUTO) 0.1 % (1.0-6.0); HEMATOCRIT 36.3 % (36-46); HEMOGLOBIN 12.8 g/dL (12.0-16.0); LYMPHOCYTES # (AUTO) 1.2 K/uL (1.0-4.8); LYMPHOCYTES % (AUTO) 32.6 % (22.0-44.0); MEAN CORPUSCULAR HEMOGLOBIN 31.8 pg (26.0-34.0); MEAN CORPUSCULAR HGB CONC 35.2 G/dL (31.0-37.0); MEAN CORPUSCULAR VOLUME 90 fL (80-100); MONOCYTES # (AUTO) 0.4 K/uL (0.1-1.0); MONOCYTES % (AUTO) 9.9 % (2.0-9.0); NEUTROPHILS # (AUTO) 2.1 K/uL (1.8-7.7); NEUTROPHILS % (AUTO) 56.6 % (40.0-70.0); PLATELET COUNT (AUTO) 91 K/uL (150-450); RED BLOOD CELL COUNT(AUTO) 4.01 MIL/uL (4.00-5.20); RED CELL DISTRIBUTION WIDTH 13.9 % (11.5-14.5)
[2021-08-31 17:48] LABS: ANION GAP 11 mmol/L (8-16); CALCIUM, TOTAL 8.8 mg/dL (8.8-10.5); CARBON DIOXIDE 24 mmol/L (22-29); CHLORIDE 106 mmol/L (98-107); CREATININE 0.73 mg/dL (0.60-1.30); GLOMERULAR FILTR. RATE CALC > 60 mL/min (>60); GLUCOSE,RANDOM 95 mg/dL (70-110); POTASSIUM 3.7 mmol/L (3.5-5.1); SODIUM SERUM 141 mmol/L (136-145); UREA NITROGEN, BLOOD 15 mg/dL (7-18)
[2021-08-31 17:54] LABS: ALANINE AMINOTRANSFERASE 26 U/L (12-78); ALBUMIN 3.6 g/dL (3.4-5.0); ALKALINE PHOSPHATASE 55 U/L (46-116); ASPARTATE AMINOTRANSFERASE 20 U/L (15-37); BILIRUBIN,TOTAL 0.6 mg/dL (0.1-1.0); CREATINE KINASE, TOTAL ONLY 20 U/L (26-192); TOTAL PROTEIN, SERUM 7.1 g/dL (6.4-8.2); VALPROIC ACID 96 mcg/mL (50-100)
[2021-08-31 17:55] LABS: AMMONIA 36 umol/L (11-32)
[2021-08-31 18:04] LABS: APPEARANCE,URINE CLEAR (CLEAR); BILIRUBIN,URINE NEGATIVE (NEGATIVE); GLUCOSE, URINE (UA) NEGATIVE (NEGATIVE); KETONES,URINE TRACE mg/dL (NEGATIVE); LEUKOCYTE ESTERASE ,URINE NEGATIVE (NEGATIVE); NITRATE,URINE NEGATIVE (NEGATIVE); OCCULT BLOOD,URINE NEGATIVE (NEGATIVE); PH,URINE 6.5 (5.0-8.0); PROTEIN,URINE TRACE mg/dL (NEGATIVE); SPECIFIC GRAVITIY, URINE 1.021 (1.003-1.030)
[2021-08-31 18:11] LABS: AMPHET/METH SCREEN,URINE NEGATIVE (NEGATIVE); BARBITURATE SCREEN, URINE NEGATIVE (NEGATIVE); BENZODIAZEPINES SCREEN,URINE NEGATIVE (NEGATIVE); CANNABINOID SCREEN,URINE NEGATIVE (NEGATIVE); COCAINE SCREEN,URINE NEGATIVE (NEGATIVE); METHADONE SCREEN, URINE NEGATIVE (NEGATIVE); OPIATE SCREEN,URINE NEGATIVE (NEGATIVE)
[2021-08-31 18:12] LABS: PHENCYCLIDINE SCREEN,URINE NEGATIVE (NEGATIVE)
[2021-08-31] MEDS ORDERED: ZOLPIDEM TARTRATE 10 MG TABLET PO PRN (21:45)
[2021-08-31] MEDS ORDERED: HALOPERIDOL 5 MG TABLET PO PRN (21:45)
[2021-08-31] MEDS ORDERED: LORazepam 2 MG TABLET PO PRN (21:45)
[2021-08-31 23:55] LABS: COVID AG,FIA SOURCE NASOPHARYNGEAL
[2021-09-01 02:38] VITALS: BP 117/64
[2021-09-01] MEDS ORDERED: ONDANSETRON HCL 4 MG TABLET PO PRN (06:15)
[2021-09-01] MEDS ORDERED: DOCUSATE SODIUM 100 MG CAPSULE PO PRN (06:15)
[2021-09-01] MEDS ORDERED: ACETAMINOPHEN 325 MG TABLET PO PRN (06:15)
[2021-09-01] MEDS ORDERED: NICOTINE 14 MG/24 HOUR PATCH TD PRN (06:15)
[2021-09-01] MEDS ORDERED: ALBUTEROL SULFATE HFA 90 MCG/PUFF 8 GM INHALER IH PRN (06:15)
[2021-09-01] MEDS ORDERED: MAG HYDROX/AL HYDROX/SIMETH ES 30 ML SUSPENSION UDCUP PO PRN (06:15)
[2021-09-01] MEDS ORDERED: PETROLATUM,WHITE 28 GM JELLY TP PRN (06:15)
[2021-09-01] MEDS ORDERED: LOPERAMIDE HCL 2 MG CAPSULE PO PRN (06:15)
[2021-09-01] MEDS ORDERED: GuaiFENesin/D-METHORPHAN [SUGAR-FREE] 200-20MG/10 ML SYRUP UDCUP PO PRN (06:15)
[2021-09-01] MEDS ORDERED: MAGNESIUM HYDROXIDE SUSPENSION 30 ML UDCUP PO PRN (06:15)
[2021-09-01] MEDS ORDERED: IBUPROFEN 400 MG TABLET PO PRN (06:15)
[2021-09-01] MEDS ORDERED: CloNIDine HCL 0.1 MG TABLET PO PRN (06:15)
[2021-09-01 08:09] VITALS: BP 121/78
[2021-09-01] MEDS: GABAPENTIN 300 MG CAPSULE PO SCH ×3 (09:39→17:57)
[2021-09-01] MEDS: DIVALPROEX SODIUM 500 MG DR TABLET PO SCH ×2 (12:11→17:57)
[2021-09-01] MEDS: GLYCOPYRROLATE 1 MG TABLET PO SCH ×2 (13:00→17:57)
[2021-09-01] MEDS ORDERED: GABAPENTIN 300 MG CAPSULE PO SCH (13:00)
[2021-09-01 16:16] VITALS: BP 102/66
[2021-09-01] MEDS: TOPIRAMATE 100 MG TABLET PO SCH (17:57)
[2021-09-01] MEDS ORDERED: MELATONIN 5 MG TABLET PO SCH (21:00)
[2021-09-01] MEDS: OLANZapine 5 MG TABLET PO SCH (21:17)
[2021-09-02 05:54] VITALS: BP 133/88
[2021-09-02 08:16] VITALS: BP 110/71
[2021-09-02] MEDS: TOPIRAMATE 100 MG TABLET PO SCH (08:16)
[2021-09-02] MEDS: GABAPENTIN 300 MG CAPSULE PO SCH ×2 (08:16→13:00)
[2021-09-02] MEDS: GLYCOPYRROLATE 1 MG TABLET PO SCH ×2 (08:16→13:00)
[2021-09-02] MEDS: OLANZapine 5 MG TABLET PO SCH (08:16)
[2021-09-02] MEDS: DIVALPROEX SODIUM 500 MG DR TABLET PO SCH ×2 (08:16→13:00)
== END 2021-09-02 16:51 | disposition home or self-care (01) | DRG 750 ==
LOC: EMS 16:20 → B3A 09-01 00:23
PROVIDERS: ADMIT Psychiatry & Neurology Child & Adolescent Psychiatry; ATTEND Psychiatry & Neurology Child & Adolescent Psychiatry
DX: F25.9 Schizoaffective disorder, unspecified (principal); G93.40 Encephalopathy, unspecified; D72.819 Decreased white blood cell count, unspecified; G47.00 Insomnia, unspecified; F84.0 Autistic disorder; D69.6 Thrombocytopenia, unspecified; Z20.822 Contact with and (suspected) exposure to COVID-19; Z88.8 Allergy status to other drugs, medicaments and biological substances
CPT/HCPCS: 51701; 70450; 80053; 80164; 81003; 82140; 82550; 84484; 85025; 87081; 93005; 99285; G0480; Q9967